=== PATIENT | male | born 1990 | race Caucasian/White ===

== ENCOUNTER 2024-09-17 17:26 | Inpatient (IN) | payer OTHER, SELFPAY ==
[2024-09-17 17:32] VITALS: BP 153/102; PULSE 110; RESP 20; TEMP 35.8; O2SAT 98; BMI 33.4
--- NOTE | 2024-09-17 17:37 | ED_ITS ---
HPI - General Adult General Chief complaint: Psychiatric Symptoms Stated complaint: SI Time Seen by Provider: 09/17/24 18:03 Source: patient Mode of arrival: ambulatory Limitations: no limitations History of Present Illness ED Provider: RUDY HPI narrative: 34 yo male with PMH of HIV on antivirals, bipolar and depression here with c/o SI and HI towards a roommate. Reports med compliance and no trauma or ingestion. He has never come here before for mental health issues. He has no medical complaints MD complaint: SI/HI Onset (ago): day(s) (few) Radiation: non-radiation Severity: mild Relieving factors: none Exacerbating factors: other Associated symptoms: denies other symptoms Treatments prior to arrival: none Related Data Home Medications ?Medication ?Instructions ?Recorded ?Confirmed dolutegravir 50 mg tablet (Tivicay) 50 mg PO DAILY 09/17/24 09/17/24 emtricitabine 200 mg-tenofovir 1 tab PO DAILY 09/17/24 09/17/24 alafenamide fumarate 25 mg tablet (Descovy) hydroxyzine HCl 25 mg tablet 25 mg PO BID 09/17/24 09/17/24 pantoprazole 20 mg tablet,delayed 20 mg PO DAILY 09/17/24 09/17/24 release venlafaxine 75 mg tablet 75 mg PO DAILY 09/17/24 09/17/24 Allergies Allergy/AdvReac Type Severity Reaction Status Date / Time codeine Allergy Hives Verified 09/17/24 17:34 Review of Systems 2 Review of Systems: Constitutional : No Fever, No Chills ENT/Mouth : No Ear Pain, No Nasal Congestion, No sore throat Eyes: No Eye Pain, No Swelling, No Redness Cardiovascular : No Chest Pain, No SOB Respiratory : No Cough, No Sputum, No Dyspnea Gastrointestinal : No Nausea, No Vomiting, No Diarrhea, No Hematochezia, No Melena Genitourinary : No Dysuria, No Urinary Frequency, No Hematuria Musculoskeletal : No Myalgias Skin : No Skin Lesions, No rash Neuro : No Weakness, No Numbness, No Paresthesias, No Dizziness, No Headache Psych : positive Anxiety, positive Depression, positive SI/HI All other systems reviewed and are negative PMFSH Past Medical History Attestation statement: The following information was validated with the patient. Source: old records reviewed Medical History Bipolar 1 disorder HIV (human immunodeficiency virus infection) Social History Social History Alcohol intake: current Smoked in Last 30 Days: Yes Use of substances other than those prescribed or required for medical reasons: Yes Substance Use Type: Methamphetamine and Prescription Drugs Substance Use Frequency: Chronic Longstanding Advance Directives: No Advance Directives Information Provided: No Do you have a plan to hurt others: No Plan Physical Exam ED Vital Signs: Vital Signs - 24 hr 09/17/24 17:32 09/17/24 18:26 Temperature 96.5 F L Pulse Rate 110 H Respiratory Rate 20 16 Blood Pressure 153/102 H Pulse Oximetry 98 Oxygen Delivery Method Room Air BMI result Body Mass Index 33.4 Appearance: Alert. Oriented X3. No acute distress. Eyes: Pupils equal, round and reactive to light. ENT: Pharynx normal. Neck: Normal inspection. Neck supple. CVS: Normal heart rate and rhythm. Pulses normal. Respiratory: No respiratory distress. Breath sounds normal. Abdomen: Soft and nontender. Skin: Skin warm and dry. Normal skin color. Normal skin turgor. Extremities: No lower extremity edema. No calf ttp Neuro: Oriented X 3. No motor deficit. No sensory deficit. CN2-12 intact Course Course Course Narrative: RME: Medical Decision Making Medical Decision Making [facility] Narrative: 34 yo male with PMH of HIV on antivirals, bipolar and depression here with c/o SI/HI and he denies any medical complaints or concerns he states he takes his medications. He has a safe place to live. No drug use reported. Differential Diagnosis Differential Diagnoses: The differential diagnosis associated with the presentation includes SI/HI, depression Admission/Observation Consideration of admission/observation: Escalation of care including admission/observation considered physician observation started at 710pm pending CARE team Consult Healthcare Provider Management of the patient was discussed with: Behavioral Health Provider Lab Data MDM Lab Attestation statement: I reviewed the patient's lab results. 09/17/24 19:45 09/17/24 19:45 Labs: Lab Results 09/17/24 Range/Units 19:45 WBC 8.7 (4.8-10.8) X10*3/uL RBC 4.56 L (4.60-5.80) X10*6/uL Hgb 13.6 L (14.0-18.0) g/dl Hct 40.6 L (42.0-52.0) % MCV 89.0 (80.0-98.0) fL MCH 29.8 (27.0-33.0) pg MCHC 33.5 (31.0-36.0) g/dl RDW 13.2 (11.0-16.0) % Plt Count 247 (160-400) X10*3/uL MPV 9.7 (9.4-12.4) fL Immature Gran % (Auto) 0.2 (0.0-0.4) % Neut % (Auto) 61.1 (45-73) % Lymph % (Auto) 30.6 (20-40) % [place] % (Auto) 6.2 (2-11) % Eos % (Auto) 1.6 (0-4) % Baso % (Auto) 0.3 (0-2) % Lymph # (Auto) 2.7 (1.2-4.9) X10*3/uL [place] # (Auto) 0.5 (0.1-1.2) X10*3/uL Eos # (Auto) 0.1 (0.0-0.4) X10*3/uL Baso # (Auto) 0.0 (0.0-0.2) X10*3/uL Abs Immat Gran (auto) 0.02 (0.00-0.03) X10*3/uL Absolute Neuts (auto) 5.3 (2.0-8.3) x10*3/uL Absolute Nucleated RBC 0.000 (0.0-0.012) X10*3/uL Nucleated RBC % (auto) 0.0 (0.0-0.2) /100WBC Sodium 144 (135-145) mmol/L Potassium 3.9 (3.3-5.1) mmol/L Chloride 107 (96-108) mmol/L Carbon Dioxide 27 (22-29) mmol/L Anion Gap 14 (12-20) BUN 11 (9-16) mg/dL Creatinine 1.00 (0.5-1.4) mg/dL Estim Creat Clear Calc 119.1 Estimated GFR > 60 Random Glucose 96 (60-115) mg/dL Calcium 9.1 (8.4-10.2) mg/dL Total Bilirubin 0.6 (0.0-1.0) mg/dL AST 74 H (5-37) U/L ALT 66 H (0-40) U/L Alkaline Phosphatase 60 (39-117) U/L Total Protein 7.1 (6.5-8.0) g/dL Albumin 4.2 (3.5-5.0) g/dL Ethyl Alcohol < 10 mg/dL Discharge Plan Discharge Clinical Impression: Depression Qualifiers: Depression Type: unspecified Qualified Code(s): F32.A - Depression, unspecified Patient Disposition: Still a Patient Prescriptions: No Action venlafaxine 75 mg tablet 75 mg PO DAILY pantoprazole 20 mg tablet,delayed release (DR/EC) 20 mg PO DAILY hydroxyzine HCl 25 mg tablet 25 mg PO BID Tivicay 50 mg tablet 50 mg PO DAILY Descovy 200-25 mg tablet 1 tab PO DAILY Interventions: [place]-Suicide Risk Severity Scale Last Done: 09/17/24 18:26 Print Language: Scottish
[2024-09-17 18:26] VITALS: RESP 16
--- NOTE | 2024-09-17 18:43 | PC.NURSE ---
Patient refusing blood draw stating I only want the lab to draw my blood
[2024-09-17 19:50] LABS: MANUAL DIFF FLAG NO
[2024-09-17 19:52] LABS: Basophils Percent Auto 0.3 % (0-2); Eosinophils Absolute Auto 0.1 X10*3/uL (0.0-0.4); Eosinophils Percent Auto 1.6 % (0-4); Hematocrit 40.6 % (42.0-52.0); Hemoglobin 13.6 g/dl (14.0-18.0); Imm Gran Abs Auto 0.02 X10*3/uL (0.00-0.03); Imm Gran Pct Auto 0.2 % (0.0-0.4); Lymphocytes Absolute Auto 2.7 X10*3/uL (1.2-4.9); Lymphocytes Percent Auto 30.6 % (20-40); Mean Corpuscular HGB Conc 33.5 g/dl (31.0-36.0); Mean Corpuscular Hemoglobin 29.8 pg (27.0-33.0); Mean Platelet Volume 9.7 fL (9.4-12.4); Monocytes Absolute Auto 0.5 X10*3/uL (0.1-1.2); Monocytes Percent Auto 6.2 % (2-11); Neutrophils Absolute Auto 5.3 x10*3/uL (2.0-8.3); Neutrophils Percent Auto 61.1 % (45-73); Platelet Count 247 X10*3/uL (160-400); Red Blood Count 4.56 X10*6/uL (4.60-5.80); Red Cell Distribution Width 13.2 % (11.0-16.0); White Blood Count 8.7 X10*3/uL (4.8-10.8)
[2024-09-17 20:09] LABS: Alanine Aminotransferase 66 U/L (0-40); Albumin Level 4.2 g/dL (3.5-5.0); Alkaline Phosphatase 60 U/L (39-117); Anion Gap 14 (12-20); Aspartate Amino Transferase 74 U/L (5-37); Bilirubin Total 0.6 mg/dL (0.0-1.0); Blood Urea Nitrogen 11 mg/dL (9-16); Calcium 9.1 mg/dL (8.4-10.2); Carbon Dioxide 27 mmol/L (22-29); Chloride 107 mmol/L (96-108); Creatinine Clr Calc Pharmacy 119.1; Estimated Glomerular Filt Rate > 60; Ethanol < 10 mg/dL; Glucose Random 96 mg/dL (60-115); Potassium 3.9 mmol/L (3.3-5.1); Sodium 144 mmol/L (135-145); Total Protein 7.1 g/dL (6.5-8.0)
[2024-09-17 22:13] LABS: Appearance Urine Clear; Color Urine Dark Yellow; Glucose Urine UA 500 mg/dL (Negative); Leukocyte Esterase Urine Trace (Negative); Nitrite Urine Negative (Negative); PH 5.5 (5.0-9.0); Specific Gravity - Urine >= 1.030 (1.005-1.025); UMIC TRIGGER UACC YES; Urine Blood Negative (Negative); Urine Ketones Trace mg/dL (Negative); Urine Protein 30 (1+) mg/dL (Neg-Trace)
[2024-09-17 22:24] LABS: Amphetamine Screen Urine POSITIVE (Not Detect); Barbiturates, Urine Not Detected (Not Detect); Benzodiazepines Screen Urine Not Detected (Not Detect); Buprenorphine Scr Not Detected (Not Detect); Cannabinoid Screen Urine POSITIVE (Not Detect); Cocaine Screen Urine POSITIVE (Not Detect); Fentanyl, urine Not Detected (Not Detect); Methadone Screen, Urine Not Detected (Not Detect); Opiate Screen Urine Not Detected (Not Detect); Oxycodone Screen Urine Not Detected (Not Detect); Phencyclidine Screen Urine Not Detected (Not Detect)
[2024-09-17] MEDS: Venlafaxine HCL 25 MG TABLET 75 MG PO (22:24)
[2024-09-17] MEDS: Emtricitabine/Tenofov Alafenam TABLET 1 TAB PO (22:24)
[2024-09-17] MEDS: Dolutegravir Sodium 50 MG TABLET PO (22:24)
[2024-09-17] MEDS: hydrOXYzine HCL 25 MG TABLET PO (22:25)
[2024-09-17] MEDS: Omeprazole 20 MG CAPSULE.DR PO (22:25)
[2024-09-17 22:27] LABS: Bacteria Urine None Seen (None Seen); RBC Urine 0-2 /HPF (0-2); Squamous Epithelial Cell Urine 0-2 /HPF (0-2); WBC Urine 0-5 /HPF (0-5)
--- NOTE | 2024-09-18 | ECG_ITS ---
Test Reason : rule out prolonged qtc Blood Pressure : */* mmHG Vent. Rate : 60 BPM Atrial Rate : 60 BPM P-R Int : 110 ms QRS Dur : 84 ms QT Int : 380 ms P-R-T Axes : 9 42 29 degrees QTcB Int : 380 ms Sinus rhythm with short CO Otherwise normal ECG No previous ECGs available Referred By: Jayshree Tran Electronically Signed By: JOCELIN VASQUEZ
[2024-09-18 00:38] VITALS: BP 120/69; PULSE 80; RESP 17; TEMP 36.4; O2SAT 98
--- NOTE | 2024-09-18 06:04 | PC.NURSE ---
Patient slept through the night, no distress observed/reported, 15 minutes safety check, no behavior and safety concerns, meds and meals compliant, disposition per care team is section 12 inpatient bed search, VSS, will continue to monitor
--- NOTE | 2024-09-18 07:19 | PC.NURSE ---
Assumed care of patient at 0645, patient appears to be sleeping, respirations even and unlabored, no apparent distress noted. Continue plan of care for inpatient bedsearch
[2024-09-18] MEDS: hydrOXYzine HCL 25 MG TABLET PO (07:59)
--- NOTE | 2024-09-18 14:45 | PHA.MEDREC ---
Pharmacy Consult ? Medication Reconciliation Pharmacy has reviewed the medication reconciliation completed by nursing.
[2024-09-18 15:45] VITALS: BP 132/84; PULSE 92; RESP 16; TEMP 36.6; O2SAT 95; BMI 35.5
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
[2024-09-18] MEDS: Emtricitabine/Tenofov Alafenam TABLET 1 TAB PO (21:28)
[2024-09-18] MEDS: Dolutegravir Sodium 50 MG TABLET PO (21:28)
[2024-09-18] MEDS: Venlafaxine HCL 25 MG TABLET 75 MG PO (21:29)
[2024-09-18] MEDS: Omeprazole 20 MG CAPSULE.DR PO (21:29)
[2024-09-19 08:00] VITALS: RESP 14
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
[2024-09-19 20:00] VITALS: BP 110/58; PULSE 63; TEMP 36.6; O2SAT 96
[2024-09-19] MEDS: Venlafaxine HCL 25 MG TABLET 75 MG PO (21:00)
[2024-09-19] MEDS: Omeprazole 20 MG CAPSULE.DR PO (21:00)
[2024-09-19] MEDS: Dolutegravir Sodium 50 MG TABLET PO (21:00)
[2024-09-19] MEDS: Emtricitabine/Tenofov Alafenam TABLET 1 TAB PO (21:00)
[2024-09-20 07:00] VITALS: BMI 35.5
[2024-09-20 08:00] VITALS: BP 123/77; PULSE 62; RESP 96; TEMP 36; O2SAT 96
--- NOTE | 2024-09-20 14:33 | HO.PSYCHPN ---
Subjective Subjective Date of Service: 09/20/24 Reason For Visit: depression, polysubstance use disorder Subjective Notes: Conditional Voluntary Healthcare Proxy: No Guardianship: No Medical Problems Affecting Mental Status: No Interim History: Pt declined to meet again today, staying in bed, sleeping throughout the day. Team report he is eating, taking fluids and sleeping. Medication Compliance: No Side effects from medications: No Attending Groups: No Review of Systems Acute medical concerns: No Medical Review of Systems: unchanged Review of Systems Review of Systems Yes Unobtainable due to mental status Mental Status Exam Mental Status Exam Patient Appearance: Fatigued Patient Orientation: Person, Place and Situation Level of Consciousness: Drowsy Patient Behavior: Guarded, Suspicious, Asleep, Sedated, Resistive to Care, Avoidant, Fatigued, Uncooperative and Poor Eye Contact Mood Description: Constricted Affect Description: Constricted Patient Cognition Impaired: No Ability to Follow Directions: Fair Speech Pattern: Spontaneous Speech Thought Process: Distracted Thought Content: positive for Poverty of Content, positive for Suicidal Ideation and positive for Homicidal Ideation Depressive Symptoms: Thoughts of /Suicide Judgement: Fair Diagnostics Vital Signs (24Hr): Vital Signs - 24 hr 09/19/24 20:00 09/20/24 08:00 Temperature 97.8 F 96.8 F Pulse Rate 63 62 Respiratory Rate 96 H Blood Pressure 110/58 L 123/77 Pulse Oximetry 96 96 Oxygen Delivery Method Room Air BMI result Body Mass Index 35.5 Labs 09/17/24 19:45 09/17/24 19:45 Medications Medications Current Medications Acetaminophen (Acetaminophen 325 Mg Tablet) 650 mg PO Q6H PRN PRN Reason: Headache/Pain Mild Scale (1-3) Al Hydroxide/Mg Hydroxide (Magnesium Hydrox/Alum Hydrox 30 Ml Oral.Susp) 30 ml PO Q6H PRN PRN Reason: Heartburn/Nausea Dolutegravir Sodium (Dolutegravir Sodium 50 Mg Tablet) 50 mg PO BEDTIME [facility] Last Admin: 09/19/24 21:00 Dose: 50 mg Emtricitabine/Tenofovir Alafenamide (Emtricitabine/Tenofov Alafenam Tablet) 1 tab PO BEDTIME [facility] Last Admin: 09/19/24 21:00 Dose: 1 tab Hydroxyzine HCl (Hydroxyzine Hcl 25 Mg Tablet) 25 mg PO BID [facility] Last Admin: 09/20/24 11:42 Dose: Not Given Magnesium Hydroxide (Milk Of Magnesia 30 Ml Oral.Susp) 30 ml PO DAILY PRN PRN Reason: Constipation Nicotine (Nicotine 21 Mg Patch.Td24) 21 mg TRANSDERMA DAILY PRN PRN Reason: nicotine cravings Nicotine Polacrilex (Nicotine Polacrilex 2 Mg Gum) 4 mg BUCCAL Q2H PRN PRN Reason: Nicotine Cravings Omeprazole (Omeprazole 20 Mg Capsule.Dr) 20 mg PO BEDTIME [facility] Last Admin: 09/19/24 21:00 Dose: 20 mg Trazodone HCl (Trazodone Hcl 50 Mg Tablet) 50 mg PO BEDTIME MRX1 PRN PRN Reason: Insomnia Venlafaxine HCl (Venlafaxine Hcl 25 Mg Tablet) 75 mg PO BEDTIME [facility] Last Admin: 09/19/24 21:00 Dose: 75 mg Allergies Allergies Allergy/AdvReac Type Severity Reaction Status Date / Time codeine Allergy Hives Verified 09/17/24 17:34 Assessment & Plan Assessment & Plan (1) Mood disorder: Status: Acute Code(s): F39 - Unspecified mood [affective] disorder (2) Polysubstance use disorder: Status: Acute Code(s): F19.90 - Other psychoactive substance use, unspecified, uncomplicated Plan Mood Disorder, Polysubstance Use Disorder. Pt declined to interview x 3 today, prefers to remain in bed. Plan: Admit, CV, 15 minute checks Collateral Contacts Diagnostics as needed Med adjustments when pt agrees to participate Discharge planning. 09/20/24-Continue to offer treatment. Reason for continued inpatient stay Substantial Risk for: rapid decompensation Time Spent With Patient Time: Total time managing care of this patient today ____ minutes.
[2024-09-20 20:00] VITALS: BP 111/80; PULSE 68; TEMP 36.4; O2SAT 98
[2024-09-20] MEDS: Venlafaxine HCL 25 MG TABLET 75 MG PO (22:58)
[2024-09-20] MEDS: Dolutegravir Sodium 50 MG TABLET PO (22:59)
[2024-09-20] MEDS: Emtricitabine/Tenofov Alafenam TABLET 1 TAB PO (23:00)
[2024-09-20] MEDS: Omeprazole 20 MG CAPSULE.DR PO (23:00)
--- NOTE | 2024-09-21 09:54 | HO.PSYCHPN ---
Subjective Subjective Date of Service: 09/21/24 Reason For Visit: depression, polysubstance use disorder Subjective Notes: Conditional Voluntary and 3 Day Healthcare Proxy: No Guardianship: No Medical Problems Affecting Mental Status: No Interim History: Awake, alert, engaged. TDN signed for 09/26/24. Full review of sx, medications and changes needed. Pt reports PCP had been prescribing, gave pt a year worth of refills, went on maternity leave and he has not been to find a new provider to make adjustments. Review of titration of Vraylar, Venlafaxine, addition of Mirtazapine for sleep, anxiety. Review of medical concerns, will check CD4 as he reports this is overdue. Pt visable in milieu, interactive, without psychosis or lability. Medication Compliance: Yes Side effects from medications: No Attending Groups: No Review of Systems Acute medical concerns: No Medical Review of Systems: unchanged Review of Systems Review of Systems Yes all other systems are reviewed and are negative Mental Status Exam Mental Status Exam Patient Appearance: Appropriate Patient Orientation: Person, Place, Time and Situation Level of Consciousness: Alert Patient Behavior: Talkative, Fatigued and Good Eye Contact Mood Description: Constricted and Anxious Affect Description: Constricted and Anxious Patient Cognition Impaired: No Ability to Follow Directions: Good Speech Pattern: Spontaneous Speech and Soft-Spoken Memory Description: Intact Hallucinations: None Delusions: Not Present Thought Process: Distracted Thought Content: positive for Intact, positive for Goal Oriented, positive for Suicidal Ideation (denies) and positive for Homicidal Ideation (denies) Depressive Symptoms: Thoughts of /Suicide (denies) Judgement: Fair Diagnostics Vital Signs (24Hr): Vital Signs - 24 hr 09/20/24 20:00 Temperature 97.5 F Pulse Rate 68 Blood Pressure 111/80 Pulse Oximetry 98 Oxygen Delivery Method Room Air BMI result Body Mass Index 35.5 Labs 09/17/24 19:45 09/17/24 19:45 Medications Medications Current Medications Acetaminophen (Acetaminophen 325 Mg Tablet) 650 mg PO Q6H PRN PRN Reason: Headache/Pain Mild Scale (1-3) Al Hydroxide/Mg Hydroxide (Magnesium Hydrox/Alum Hydrox 30 Ml Oral.Susp) 30 ml PO Q6H PRN PRN Reason: Heartburn/Nausea Dolutegravir Sodium (Dolutegravir Sodium 50 Mg Tablet) 50 mg PO BEDTIME [facility] Last Admin: 09/20/24 22:59 Dose: 50 mg Emtricitabine/Tenofovir Alafenamide (Emtricitabine/Tenofov Alafenam Tablet) 1 tab PO BEDTIME [facility] Last Admin: 09/20/24 23:00 Dose: 1 tab Hydroxyzine HCl (Hydroxyzine Hcl 25 Mg Tablet) 25 mg PO BID [facility] Last Admin: 09/20/24 23:03 Dose: Not Given Magnesium Hydroxide (Milk Of Magnesia 30 Ml Oral.Susp) 30 ml PO DAILY PRN PRN Reason: Constipation Nicotine (Nicotine 21 Mg Patch.Td24) 21 mg TRANSDERMA DAILY PRN PRN Reason: nicotine cravings Nicotine Polacrilex (Nicotine Polacrilex 2 Mg Gum) 4 mg BUCCAL Q2H PRN PRN Reason: Nicotine Cravings Omeprazole (Omeprazole 20 Mg Capsule.Dr) 20 mg PO BEDTIME [facility] Last Admin: 09/20/24 23:00 Dose: 20 mg Trazodone HCl (Trazodone Hcl 50 Mg Tablet) 50 mg PO BEDTIME MRX1 PRN PRN Reason: Insomnia Venlafaxine HCl (Venlafaxine Hcl 25 Mg Tablet) 75 mg PO BEDTIME [facility] Last Admin: 09/20/24 22:58 Dose: 75 mg Allergies Allergies Allergy/AdvReac Type Severity Reaction Status Date / Time codeine Allergy Hives Verified 09/17/24 17:34 Assessment & Plan Assessment & Plan (1) Mood disorder: Status: Acute Code(s): F39 - Unspecified mood [affective] disorder (2) Polysubstance use disorder: Status: Acute Code(s): F19.90 - Other psychoactive substance use, unspecified, uncomplicated Plan Mood Disorder, Polysubstance Use Disorder. Pt declined to interview x 3 today, prefers to remain in bed. Plan: Admit, CV, 15 minute checks Collateral Contacts Diagnostics as needed Med adjustments when pt agrees to participate Discharge planning. 09/21/24 Mirtazapine 15 mg HS Increase Venlafaxine to 150 mg daily Increase Vraylar to 6 mg daily CD4 Three day notice to 09/26/24. Reason for continued inpatient stay Substantial Risk for: rapid decompensation and med/psych decompensation Time Spent With Patient Time: Total time managing care of this patient today ____ minutes.
--- NOTE | 2024-09-21 16:09 | PC.NURSE ---
3 day notice signed.
[2024-09-21 20:00] VITALS: BP 131/78; PULSE 81; RESP 18; TEMP 36.4; O2SAT 99
[2024-09-21] MEDS: Dolutegravir Sodium 50 MG TABLET PO (22:45)
[2024-09-21] MEDS: Mirtazapine 15 MG TABLET PO (22:45)
[2024-09-21] MEDS: Omeprazole 20 MG CAPSULE.DR PO (22:45)
[2024-09-21] MEDS: Emtricitabine/Tenofov Alafenam TABLET 1 TAB PO (22:46)
[2024-09-22 09:52] VITALS: RESP 16
--- NOTE | 2024-09-22 09:52 | PC.NURSE ---
Addendum entered by Briana Millan RN 09/22/24 10:09: 3 attempts were made between 8:30 and 10:00. Original Note: Christoph refused to wake up to take morning medications or have his vital signs taken, would not acknowledge calling his name or gently shaking him.
--- NOTE | 2024-09-22 18:49 | P.PNPSI_ITS ---
Subjective Subjective Date of Service: 09/22/24 Reason For Visit: depression, polysubstance use disorder Interim History: Met with patient; discussed with team Patient difficult with which to engage as he does not seem to want to talk much. Patient however was willing to say that he is getting better and that he is getting there... He says his mood is getting so-so. He denies any SI or HI or AVH. Mental Status Exam Mental Status Exam Patient Appearance: Appropriate Patient Orientation: Person, Place, Time and Situation Level of Consciousness: Awake and Alert Patient Behavior: Cooperative (Marginally so) and Poor Eye Contact Behavior Comments: Keeps to himself, does not talk much Mood Description: Calm ( so so ) Affect Description: Constricted Patient Cognition Impaired: No Ability to Follow Directions: Fair Speech Pattern: Spontaneous Speech and Soft-Spoken Memory Description: Intact Hallucinations: None Delusions: Not Present Thought Process: Goal Oriented Thought Content: positive for Intact, positive for Goal Oriented, positive for Suicidal Ideation (denies) and positive for Homicidal Ideation (denies) Judgement: Fair Diagnostics Vital Signs (24Hr): Vital Signs - 24 hr 09/21/24 20:00 09/22/24 09:52 Temperature 97.5 F Pulse Rate 81 Respiratory Rate 18 16 Blood Pressure 131/78 Pulse Oximetry 99 Oxygen Delivery Method Room Air BMI result Body Mass Index 35.5 Labs 09/17/24 19:45 09/17/24 19:45 Medications Medications Current Medications Acetaminophen (Acetaminophen 325 Mg Tablet) 650 mg PO Q6H PRN PRN Reason: Headache/Pain Mild Scale (1-3) Al Hydroxide/Mg Hydroxide (Magnesium Hydrox/Alum Hydrox 30 Ml Oral.Susp) 30 ml PO Q6H PRN PRN Reason: Heartburn/Nausea Cariprazine (Cariprazine Hcl 3 Mg Capsule) 6 mg PO BEDTIME HERMINIA Dolutegravir Sodium (Dolutegravir Sodium 50 Mg Tablet) 50 mg PO BEDTIME HERMINIA Last Admin: 09/21/24 22:45 Dose: 50 mg Emtricitabine/Tenofovir Alafenamide (Emtricitabine/Tenofov Alafenam Tablet) 1 tab PO BEDTIME HERMINIA Last Admin: 09/21/24 22:46 Dose: 1 tab Magnesium Hydroxide (Milk Of Magnesia 30 Ml Oral.Susp) 30 ml PO DAILY PRN PRN Reason: Constipation Mirtazapine (Mirtazapine 15 Mg Tablet) 15 mg PO BEDTIME HERMINIA Last Admin: 09/21/24 22:45 Dose: 15 mg Nicotine (Nicotine 21 Mg Patch.Td24) 21 mg TRANSDERMA DAILY PRN PRN Reason: nicotine cravings Nicotine Polacrilex (Nicotine Polacrilex 2 Mg Gum) 4 mg BUCCAL Q2H PRN PRN Reason: Nicotine Cravings Omeprazole (Omeprazole 20 Mg Capsule.Dr) 20 mg PO BEDTIME HERMINIA Last Admin: 09/21/24 22:45 Dose: 20 mg Trazodone HCl (Trazodone Hcl 50 Mg Tablet) 50 mg PO BEDTIME MRX1 PRN PRN Reason: Insomnia Venlafaxine HCl (Venlafaxine Hcl Er 150 Mg Cap.Er.24h) 150 mg PO BEDTIME HERMINIA Allergies Allergies Allergy/AdvReac Type Severity Reaction Status Date / Time codeine Allergy Hives Verified 09/17/24 17:34 Assessment & Plan Assessment & Plan (1) Mood disorder: Status: Acute Code(s): F39 - Unspecified mood [affective] disorder (2) Polysubstance use disorder: Status: Acute Code(s): F19.90 - Other psychoactive substance use, unspecified, uncomplicated Plan Mood Disorder, Polysubstance Use Disorder. Pt declined to interview x 3 today, prefers to remain in bed. Plan: Admit, CV, 15 minute checks Collateral Contacts Diagnostics as needed Med adjustments when pt agrees to participate Discharge planning. 09/21/24 Mirtazapine 15 mg HS Increase Venlafaxine to 150 mg daily Increase Vraylar to 6 mg daily CD4 Three day notice to 09/26/24. 09/22 Patient difficult with which to engage as he does not seem to want to talk much. Patient however was willing to say that he is getting better and that he is getting there... He says his mood is getting so-so. He denies any SI or HI or AVH. Patient wants medication to be changed to bedtime to which senior mortgage underwriter agrees Patient educated on: diagnosis and medication risk/benefits Informed Consent: understands Reason for continued inpatient stay Substantial Risk for: med/psych decompensation Time Spent With Patient Time: Total time managing care of this patient today ____ minutes.
[2024-09-22] MEDS: Dolutegravir Sodium 50 MG TABLET PO (22:27)
[2024-09-22] MEDS: Cariprazine HCl 3 MG CAPSULE 6 MG PO (22:27)
[2024-09-22] MEDS: Emtricitabine/Tenofov Alafenam TABLET 1 TAB PO (22:28)
[2024-09-22] MEDS: Omeprazole 20 MG CAPSULE.DR PO (22:28)
[2024-09-22] MEDS: Mirtazapine 15 MG TABLET PO (22:28)
[2024-09-22] MEDS: Venlafaxine HCl ER 150 MG CAP.ER.24H PO (22:28)
[2024-09-23 07:38] VITALS: RESP 18
[2024-09-23] MEDS: Magnesium Hydrox/Alum Hydrox 30 ML ORAL.SUSP PO (12:07)
--- NOTE | 2024-09-23 16:05 | P.PNPSI_ITS ---
Subjective Subjective Date of Service: 09/23/24 Reason For Visit: depression, polysubstance use disorder Interim History: Met with patient; discussed with team Refuses to talk with assembly instructions writer other than to not is okay Mental Status Exam Mental Status Exam Patient Appearance: Appropriate Patient Orientation: Person, Place, Time and Situation Level of Consciousness: Awake and Alert Patient Behavior: Cooperative (Marginally so) and Poor Eye Contact Behavior Comments: Keeps to himself, does not talk much Mood Description: Calm Affect Description: Constricted Patient Cognition Impaired: No Ability to Follow Directions: Fair Speech Pattern: Spontaneous Speech and Soft-Spoken Memory Description: Intact Hallucinations: None Delusions: Not Present Thought Process: Goal Oriented Thought Content: positive for Intact, positive for Goal Oriented, positive for Suicidal Ideation (denies) and positive for Homicidal Ideation (denies) Judgement: Fair Diagnostics Vital Signs (24Hr): Vital Signs - 24 hr 09/23/24 07:38 Respiratory Rate 18 Oxygen Delivery Method Room Air BMI result Body Mass Index 35.5 Labs 09/17/24 19:45 09/17/24 19:45 Medications Medications Current Medications Acetaminophen (Acetaminophen 325 Mg Tablet) 650 mg PO Q6H PRN PRN Reason: Headache/Pain Mild Scale (1-3) Al Hydroxide/Mg Hydroxide (Magnesium Hydrox/Alum Hydrox 30 Ml Oral.Susp) 30 ml PO Q6H PRN PRN Reason: Heartburn/Nausea Last Admin: 09/23/24 12:07 Dose: 30 ml Cariprazine (Cariprazine Hcl 3 Mg Capsule) 6 mg PO BEDTIME HERMINIA Last Admin: 09/22/24 22:27 Dose: 6 mg Dolutegravir Sodium (Dolutegravir Sodium 50 Mg Tablet) 50 mg PO BEDTIME HERMINIA Last Admin: 09/22/24 22:27 Dose: 50 mg Emtricitabine/Tenofovir Alafenamide (Emtricitabine/Tenofov Alafenam Tablet) 1 tab PO BEDTIME HERMINIA Last Admin: 09/22/24 22:28 Dose: 1 tab Magnesium Hydroxide (Milk Of Magnesia 30 Ml Oral.Susp) 30 ml PO DAILY PRN PRN Reason: Constipation Mirtazapine (Mirtazapine 15 Mg Tablet) 15 mg PO BEDTIME HERMINIA Last Admin: 09/22/24 22:28 Dose: 15 mg Nicotine (Nicotine 21 Mg Patch.Td24) 21 mg TRANSDERMA DAILY PRN PRN Reason: nicotine cravings Nicotine Polacrilex (Nicotine Polacrilex 2 Mg Gum) 4 mg BUCCAL Q2H PRN PRN Reason: Nicotine Cravings Omeprazole (Omeprazole 20 Mg Capsule.Dr) 20 mg PO BEDTIME [facility] Last Admin: 09/22/24 22:28 Dose: 20 mg Trazodone HCl (Trazodone Hcl 50 Mg Tablet) 50 mg PO BEDTIME MRX1 PRN PRN Reason: Insomnia Venlafaxine HCl (Venlafaxine Hcl Er 150 Mg Cap.Er.24h) 150 mg PO BEDTIME [facility] Last Admin: 09/22/24 22:28 Dose: 150 mg Allergies Allergies Allergy/AdvReac Type Severity Reaction Status Date / Time codeine Allergy Hives Verified 09/17/24 17:34 Assessment & Plan Assessment & Plan (1) Mood disorder: Status: Acute Code(s): F39 - Unspecified mood [affective] disorder (2) Polysubstance use disorder: Status: Acute Code(s): F19.90 - Other psychoactive substance use, unspecified, uncomplicated Plan Mood Disorder, Polysubstance Use Disorder. Pt declined to interview x 3 today, prefers to remain in bed. Plan: Admit, CV, 15 minute checks Collateral Contacts Diagnostics as needed Med adjustments when pt agrees to participate Discharge planning. 09/21/24 Mirtazapine 15 mg HS Increase Venlafaxine to 150 mg daily Increase Vraylar to 6 mg daily CD4 Three day notice to 09/26/24. 09/22 Patient difficult with which to engage as he does not seem to want to talk much. Patient however was willing to say that he is getting better and that he is getting there... He says his mood is getting so-so. He denies any SI or HI or AVH. Patient wants medication to be changed to bedtime to which assembly instructions writer agrees 09/23 continue treatment plan; patient not interested in engaging Reason for continued inpatient stay Substantial Risk for: med/psych decompensation Time Spent With Patient Time: Total time managing care of this patient today ____ minutes.
[2024-09-23 20:00] VITALS: RESP 14
[2024-09-23] MEDS: Dolutegravir Sodium 50 MG TABLET PO (22:37)
[2024-09-23] MEDS: Venlafaxine HCl ER 150 MG CAP.ER.24H PO (22:37)
[2024-09-23] MEDS: Cariprazine HCl 3 MG CAPSULE 6 MG PO (22:38)
[2024-09-23] MEDS: Mirtazapine 15 MG TABLET PO (22:38)
[2024-09-23] MEDS: Emtricitabine/Tenofov Alafenam TABLET 1 TAB PO (22:38)
[2024-09-23] MEDS: Omeprazole 20 MG CAPSULE.DR PO (22:38)
--- NOTE | 2024-09-24 16:12 | HO.PSYCHPN ---
Subjective Subjective Date of Service: 09/24/24 Reason For Visit: depression, polysubstance use disorder Subjective Notes: Conditional Voluntary and 3 Day Healthcare Proxy: No Guardianship: No Medical Problems Affecting Mental Status: No Interim History: Pt reports tolerating medication increases. He requested to change doses to HS over the weekend. Prepared for discharge 09/25. Denies SI,HI, AH, VH. No sx of acute psychosis,guillermo Medication Compliance: Yes Side effects from medications: No Attending Groups: Intermittent Review of Systems Acute medical concerns: No Medical Review of Systems: unchanged Review of Systems Review of Systems Denies Mental Status Exam Mental Status Exam Patient Appearance: Appropriate Patient Orientation: Person, Place, Time and Situation Level of Consciousness: Alert Patient Behavior: Appropriate, Talkative and Good Eye Contact Mood Description: Constricted Affect Description: Constricted Patient Cognition Impaired: No Ability to Follow Directions: Good Speech Pattern: Spontaneous Speech Memory Description: Intact Hallucinations: None Delusions: Not Present Thought Process: Intact Thought Content: positive for Intact Depressive Symptoms: Thoughts of /Suicide (denies) Judgement: Good Diagnostics Vital Signs (24Hr): Vital Signs - 24 hr 09/23/24 20:00 Respiratory Rate 14 BMI result Body Mass Index 35.5 Labs 09/17/24 19:45 09/17/24 19:45 Medications Medications Current Medications Acetaminophen (Acetaminophen 325 Mg Tablet) 650 mg PO Q6H PRN PRN Reason: Headache/Pain Mild Scale (1-3) Al Hydroxide/Mg Hydroxide (Magnesium Hydrox/Alum Hydrox 30 Ml Oral.Susp) 30 ml PO Q6H PRN PRN Reason: Heartburn/Nausea Last Admin: 09/23/24 12:07 Dose: 30 ml Cariprazine (Cariprazine Hcl 3 Mg Capsule) 6 mg PO BEDTIME HERMINIA Last Admin: 09/23/24 22:38 Dose: 6 mg Dolutegravir Sodium (Dolutegravir Sodium 50 Mg Tablet) 50 mg PO BEDTIME HERMINIA Last Admin: 09/23/24 22:37 Dose: 50 mg Emtricitabine/Tenofovir Alafenamide (Emtricitabine/Tenofov Alafenam Tablet) 1 tab PO BEDTIME HERMINIA Last Admin: 09/23/24 22:38 Dose: 1 tab Magnesium Hydroxide (Milk Of Magnesia 30 Ml Oral.Susp) 30 ml PO DAILY PRN PRN Reason: Constipation Mirtazapine (Mirtazapine 15 Mg Tablet) 15 mg PO BEDTIME HERMINIA Last Admin: 09/23/24 22:38 Dose: 15 mg Nicotine (Nicotine 21 Mg Patch.Td24) 21 mg TRANSDERMA DAILY PRN PRN Reason: nicotine cravings Nicotine Polacrilex (Nicotine Polacrilex 2 Mg Gum) 4 mg BUCCAL Q2H PRN PRN Reason: Nicotine Cravings Omeprazole (Omeprazole 20 Mg Capsule.Dr) 20 mg PO BEDTIME HERMINIA Last Admin: 09/23/24 22:38 Dose: 20 mg Trazodone HCl (Trazodone Hcl 50 Mg Tablet) 50 mg PO BEDTIME MRX1 PRN PRN Reason: Insomnia Venlafaxine HCl (Venlafaxine Hcl Er 150 Mg Cap.Er.24h) 150 mg PO BEDTIME HERMINIA Last Admin: 09/23/24 22:37 Dose: 150 mg Allergies Allergies Allergy/AdvReac Type Severity Reaction Status Date / Time codeine Allergy Hives Verified 09/17/24 17:34 Assessment & Plan Assessment & Plan (1) Mood disorder: Status: Acute Code(s): F39 - Unspecified mood [affective] disorder (2) Polysubstance use disorder: Status: Acute Code(s): F19.90 - Other psychoactive substance use, unspecified, uncomplicated Plan Mood Disorder, Polysubstance Use Disorder. Pt declined to interview x 3 today, prefers to remain in bed. Plan: Admit, CV, 15 minute checks Collateral Contacts Diagnostics as needed Med adjustments when pt agrees to participate Discharge planning. 09/21/24 Mirtazapine 15 mg HS Increase Venlafaxine to 150 mg daily Increase Vraylar to 6 mg daily CD4 Three day notice to 09/26/24. 09/22 Patient difficult with which to engage as he does not seem to want to talk much. Patient however was willing to say that he is getting better and that he is getting there... He says his mood is getting so-so. He denies any SI or HI or AVH. Patient wants medication to be changed to bedtime to which chief writer agrees 09/23 continue treatment plan; patient not interested in engaging 09/24 Discharge 09/25/24 Reason for continued inpatient stay Substantial Risk for: stable for discharge Time Spent With Patient Time: Total time managing care of this patient today ____ minutes.
[2024-09-24] MEDS: Magnesium Hydrox/Alum Hydrox 30 ML ORAL.SUSP PO (16:30)
[2024-09-24] MEDS: Venlafaxine HCl ER 150 MG CAP.ER.24H PO (22:30)
[2024-09-24] MEDS: Emtricitabine/Tenofov Alafenam TABLET 1 TAB PO (22:30)
[2024-09-24] MEDS: Dolutegravir Sodium 50 MG TABLET PO (22:30)
[2024-09-24] MEDS: Cariprazine HCl 3 MG CAPSULE 6 MG PO (22:30)
[2024-09-24] MEDS: Omeprazole 20 MG CAPSULE.DR PO (22:30)
[2024-09-24] MEDS: Mirtazapine 15 MG TABLET PO (22:30)
[2024-09-25 08:00] VITALS: RESP 16
--- NOTE | 2024-09-25 17:30 | PM.PSYDC ---
DS: Providers Provider Date of admission: 09/18/24 13:50 Primary care physician: Unknown Physician DS: Diagnosis Discharge Diagnosis (1) Mood disorder: Status: Acute (2) Polysubstance use disorder: Status: Acute DS: Medications Discharge Medications Home Medications: Previous Rx's ?Medication ?Instructions ?Recorded cariprazine 6 mg capsule (Vraylar) 6 mg PO DAILY #30 caps 09/25/24 dolutegravir 50 mg tablet (Tivicay) 50 mg PO BEDTIME #30 tabs 09/25/24 emtricitabine 200 mg-tenofovir 1 tab PO BEDTIME #30 tabs 09/25/24 alafenamide fumarate 25 mg tablet (Descovy) mirtazapine 15 mg tablet 15 mg PO BEDTIME #30 tabs 09/25/24 naloxone 4 mg/actuation nasal 4 mg intranasal Q2M PRN opioid 09/25/24 spray (Narcan) overdose #2 ea pantoprazole 20 mg tablet,delayed 20 mg PO BEDTIME #30 tabs 09/25/24 release venlafaxine 150 mg 150 mg PO BEDTIME #30 caps 09/25/24 capsule,extended release 24 hr Data Data Completed and Pending Completed studies during hospitalization [Text1]: 09/21/24 14:31 Lymphocyte Subset Cmmnt Pending Total Lymphocytes Pending % CD3 Cells Pending Absolute CD3 Count Pending % CD4 Cells Pending Absolute CD4 Count Pending CD4/CD8 Ratio Pending % CD8 Cells Pending Absolute CD8 Count Pending DS: Summary Time Spent with Patient Time attestation: Total time managing care of this patient today ____ minutes. Discharge Plan Discharge Anticipated Discharge Date/Time: 09/25/24 12:00 Patient Disposition: Xfer Other Discharge Diagnosis: Mood Disorder Polysubstance Use Disorder Referrals: Physician,Unknown J [Primary Care Provider] - (Pt declined to sign release for PCP. Pt reported he will schedule his own follow up appointment following discharge. ) Discharge Medications: New venlafaxine 150 mg Capsule,Extended Release 24hr 150 mg PO BEDTIME Qty: 30 1RF mirtazapine 15 mg Tablet 15 mg PO BEDTIME Qty: 30 1RF Vraylar 6 mg capsule 6 mg PO DAILY Qty: 30 1RF naloxone [Narcan] 4 mg/actuation spray,non-aerosol 4 mg intranasal Q2M PRN (Reason: opioid overdose) Qty: 2 0RF Rx Instructions: spray 1 dose into ONE nostril; alternate nostrils w each dose until help arrives Continued pantoprazole 20 mg tablet,delayed release (DR/EC) 20 mg PO BEDTIME Qty: 30 1RF Tivicay 50 mg tablet 50 mg PO BEDTIME Qty: 30 1RF Descovy 200-25 mg tablet 1 tab PO BEDTIME Qty: 30 1RF Discontinued venlafaxine 75 mg tablet 75 mg PO BEDTIME hydroxyzine HCl 25 mg tablet 25 mg PO BID Discharge Orders: Discharge Order (Routine); Ordered 09/25/24 Ordered By: Leela Iglesias Diet: Advance to usual diet Activity on Discharge: As tolerated Stand Alone Forms: Patient Portal Discharge page, Community Support Print Language: Slovak Care Plan Goals: Mood and Behavioral Stabilization Abstinence from Substances Health Concerns: Mood and Behavioral Stabilization Abstinence from Substances Plan of Treatment: Take medications as directed Attend scheduled appointments Assessment: Denies SI,HI,AH,VH No sx of acute guillermo or psychosis Agrees with plan of care. Discharge Date/Time: 09/25/24 11:40
[2024-09-26 14:53] LABS: Absolute CD3 Count 2370 cells/uL (840-3060); Absolute CD4 Count 1035 cells/uL (490-1740); Absolute CD8 Count 1354 cells/uL (180-1170); Absolute Lymphocytes 3154 cells/uL (850-3900); CD4 CD8 Ratio 0.76 (0.86-5.00); Percent CD3 Cells 75 % (57-85); Percent CD4 Cells 33 % (30-61); Percent CD8 Cells 43 % (12-42)
== END 2024-09-25 11:40 | disposition other institution (70) | DRG 753 ==
LOC: HO.ED 19:13 → HO.PM5 09-18 14:41
PROVIDERS: Physician Assistant; Admitting Provider Clinical Nurse Specialist Psychiatric/Mental Health, Adult; Emergency Provider Emergency Medicine; Visit Provider Clinical Nurse Specialist Psychiatric/Mental Health, Adult
DX: F39 Unspecified mood [affective] disorder (principal); R45.851 Suicidal ideations; R45.850 Homicidal ideations; F17.210 Nicotine dependence, cigarettes, uncomplicated; F19.90 Other psychoactive substance use, unspecified, uncomplicated; Z21 Asymptomatic human immunodeficiency virus [HIV] infection status; Z71.6 Tobacco abuse counseling; Z79.899 Other long term (current) drug therapy
CPT/HCPCS: 36415; 80053; 80307; 81001; 85025; 86359; 86360; 93005; 99285

== ENCOUNTER 2024-09-18 13:50 | Outpatient (BNV) | payer OTHER, SELFPAY | END 2024-09-18 14:07 | PROVIDERS: Admitting Provider Clinical Nurse Specialist Psychiatric/Mental Health, Adult; Emergency Provider Emergency Medicine; Visit Provider Internal Medicine | DX: I45.81 Long QT syndrome (principal) | CPT/HCPCS: 93010 ==

== ENCOUNTER → 2024-09-18 13:50 | Outpatient (BNV) | payer OTHER, SELFPAY | PROVIDERS: Admitting Provider Clinical Nurse Specialist Psychiatric/Mental Health, Adult; Emergency Provider Emergency Medicine; Visit Provider Clinical Nurse Specialist Psychiatric/Mental Health, Adult | DX: F39 Unspecified mood [affective] disorder (principal); F19.90 Other psychoactive substance use, unspecified, uncomplicated | CPT/HCPCS: 90792 ==

== ENCOUNTER 2024-11-18 15:27 | Inpatient (IN) | payer OTHER, SELFPAY ==
--- NOTE | ~2024-11-18 | XR_ITS ---
CLINICAL HISTORY: PAIN 4 views left knee Comparison: None Findings: No fractures or dislocations. There is a small joint effusion. No significant arthritic change. No radiopaque foreign body. Impression: Joint distances are normal. No acute skeletal abnormality This document has been electronically signed by: Cedrick Daniels MD on 11/18/2024 17:10:53
--- NOTE | ~2024-11-18 | US_ITS ---
CLINICAL HISTORY: pain, swelling Venous duplex Doppler ultrasound of the left leg with duplex Doppler ultrasound and waveform analysis: Comparison: None Findings: The deep veins of the left leg were evaluated with compression, augmentation and phasicity which are normal. Blood flow in the deep veins was also documented with compression, augmentation and phasicity. A 3.2 x 12 mm water density fluid collection with debris and posterior acoustic enhancement is present in the region of interest anterior to the patella. Impression: 1. Negative for deep venous thrombosis. 2. Anterior knee water density fluid collection with debris may represent displaced joint effusion or adventitial bursitis This document has been electronically signed by: Cedrick Daniels MD on 11/18/2024 19:50:40
[2024-11-18 15:48] VITALS: BP 116/82; PULSE 112; RESP 20; TEMP 36.7; O2SAT 97; BMI 33.6
--- NOTE | 2024-11-18 17:54 | ED_ITS ---
HPI - General Adult General Chief complaint: Psychiatric Symptoms Stated complaint: Left knee swollen / pt asking for it to be drained Time Seen by Provider: 11/18/24 17:31 Source: patient Limitations: no limitations History of Present Illness ED Provider: Hattie Baker PA-C HPI narrative: 34-year-old male with a history of polysubstance abuse and mood disorder presents with left knee pain and swelling x5 days. Patient was seen at urgent care he was sent here for further assessment. Patient denies trauma, overuse injury, or sprain. Denies redness, warmth, inability to ambulate or flex and extend the knee, no fevers. Related Data Previous Rx's ?Medication ?Instructions ?Recorded cariprazine 6 mg capsule (Vraylar) 6 mg PO DAILY #30 caps 09/25/24 dolutegravir 50 mg tablet (Tivicay) 50 mg PO BEDTIME #30 tabs 09/25/24 emtricitabine 200 mg-tenofovir 1 tab PO BEDTIME #30 tabs 09/25/24 alafenamide fumarate 25 mg tablet (Descovy) mirtazapine 15 mg tablet 15 mg PO BEDTIME #30 tabs 09/25/24 pantoprazole 20 mg tablet,delayed 20 mg PO BEDTIME #30 tabs 09/25/24 release venlafaxine 150 mg 150 mg PO BEDTIME #30 caps 09/25/24 capsule,extended release 24 hr Allergies Allergy/AdvReac Type Severity Reaction Status Date / Time codeine Allergy Hives Verified 11/18/24 15:50 Review of Systems 2 Review of Systems: Yes all other systems are reviewed and are negative Constitutional: Constitutional: Denies fatigue and Denies fever(s) Cardiovascular: Cardiovascular: Denies chest pain and Denies dyspnea Respiratory: Respiratory: Denies dyspnea Musculoskeletal: Musculoskeletal: Reports arthralgias, Reports joint swelling, Denies numbness and Denies tingling Integumentary/Breasts: Skin/Breast: Denies erythema Neurologic: Denies numbness and Denies tingling Endocrine: Endocrine: Denies fatigue PMFSH Past Medical History Attestation statement: The following information was validated with the patient. Medical History (Updated 11/18/24 @ 21:36 by LLOYD Hnuter) Polysubstance use disorder Mood disorder Bipolar 1 disorder HIV (human immunodeficiency virus infection) Social History Social History Household Members: Friend(s) Household Members Other:: Pt reports he lives with three male friends in a 2 bedroom home. Housing: Apartment Do you presently have visiting nurse or other home services: No Alcohol intake: current Alcohol intake frequency: holidays/special occasions only Patient Tobacco Use Status: Current everyday Tobacco user Tobacco use type: Cigarette Smoked in Last 30 Days: Yes Use of substances other than those prescribed or required for medical reasons: Yes Substance Use Type: Crack/Cocaine and Marijuana Substance Use Frequency: Occasionally Last Used Substance: Days (ago) Any prior treatment program specific to substance use: No Advance Directives: No Advance Directives Information Provided: No Do you have a plan to hurt others: No Plan service: No Sexual orientation: Unable to collect Physical Exam ED Vital Signs: Vital Signs - 24 hr 11/18/24 15:48 11/18/24 17:56 11/18/24 19:38 Temperature 98.1 F 98.2 F 97.6 F Pulse Rate 112 H 96 108 H Respiratory Rate 20 20 16 Blood Pressure 116/82 117/71 129/86 Pulse Oximetry 97 99 100 Oxygen Delivery Method Room Air Room Air Room Air 11/19/24 06:17 Temperature 98.4 F Pulse Rate 59 Respiratory Rate 17 Blood Pressure 125/84 Pulse Oximetry 98 Oxygen Delivery Method Room Air BMI result Body Mass Index 33.6 Const Other: Alert well-appearing Orientation/consciousness: patient oriented x3 Resp Effort & Inspection: normal respiratory effort Cardio Other: Normal peripheral perfusion Skin Other: Warm dry no rash Neuro General: patient oriented x3, gait normal, no focal motor deficits and CN's II- XI intact bilaterally Extrem Other: Full flexion and extension of the left knee no overlying erythema or warmth noted, it was objectively swollen Psych Other: Cooperative Course Reevaluation(s) Reevaluation #1: Patient was pending results of his ultrasound, I already saw him and reviewed results of the x-ray. He re-presented to triage, he is now stating he is having thoughts of self-harm. He will have to be referred to the care team. We will be ordering screening labs, ethanol and U tox Time: 19:12 Medications Administered Generic Name Dose Route Start Last Admin Trade Name Freq PRN Reason Stop Dose Admin Mirtazapine 15 mg 11/19/24 08:15 11/19/24 10:25 Mirtazapine 15 Mg Tablet PO Not Given BEDTIME HERMINIA Discontinued Medications Generic Name Dose Route Start Last Admin Trade Name Timbo LIVE Reason Stop Dose Admin Cariprazine 6 mg 11/19/24 09:00 11/19/24 10:25 Cariprazine Hcl 3 Mg Capsule PO Not Given DAILY HERMINIA Ibuprofen 600 mg 11/18/24 17:55 11/18/24 17:58 Ibuprofen 600 Mg Tablet PO 11/18/24 17:56 600 mg ONCE ONE Administration Medical Decision Making Medical Decision Making [facility] Narrative: 34-year-old male with a history of polysubstance abuse and mood disorder presents with left knee pain and swelling x5 days. Patient was seen at urgent care he was sent here for further assessment. Patient denies trauma, overuse injury, or sprain. Denies redness, warmth, inability to ambulate or flex and extend the knee, no fevers. Problem: Polysubstance abuse, mood disorder History: Per patient I have considered the following differential diagnoses: Sprain, fracture, dislocation, DVT, septic effusion, gout , SI, HI, decompensated psychiatric illness, drug/alcohol intoxication Plan: X-ray obtained from triage, there was no fracture or dislocation there was a small effusion. We will obtain an ultrasound to make sure he does not have a DVT. His exam is not consistent with gout or septic joint, he is ambulatory and has full flexion and extension of the knee there was no overlying redness, or warmth. Patient was pending results of his ultrasound, I already saw him and reviewed results of the x-ray. He re-presented to triage, he is now stating he is having thoughts of self-harm. He will have to be referred to the care team. We will be ordering screening labs, ethanol and U tox I have independently reviewed the following tests: Labs: No leukocytosis, not anemic, viral panel negative, tox screen positive for amphetamine, cocaine X-ray left knee: Findings: No fractures or dislocations. There is a small joint effusion. No significant arthritic change. No radiopaque foreign body. Impression: Joint distances are normal. No acute skeletal abnormality Ultrasound left lower extremity:Impression: 1. Negative for deep venous thrombosis. 2. Anterior knee water density fluid collection with debris may represent displaced joint effusion or adventitial bursitis Lab Data 11/18/24 20:25 11/18/24 20:25 Labs: Lab Results 11/18/24 11/18/24 11/18/24 Range/Units 20:25 20:26 20:34 WBC 10.0 (4.8-10.8) X10*3/uL RBC 5.09 (4.60-5.80) X10*6/uL Hgb 15.3 (14.0-18.0) g/dl Hct 47.9 (42.0-52.0) % MCV 94.1 (80.0-98.0) fL MCH 30.1 (27.0-33.0) pg MCHC 31.9 (31.0-36.0) g/dl RDW 13.5 (11.0-16.0) % Plt Count 287 (160-400) X10*3/uL MPV 9.3 L (9.4-12.4) fL Immature Gran % (Auto) 0.2 (0.0-0.4) % Neut % (Auto) 68.9 (45-73) % Lymph % (Auto) 25.9 (20-40) % [place] % (Auto) 4.2 (2-11) % Eos % (Auto) 0.4 (0-4) % Baso % (Auto) 0.4 (0-2) % Lymph # (Auto) 2.6 (1.2-4.9) X10*3/uL [place] # (Auto) 0.4 (0.1-1.2) X10*3/uL Eos # (Auto) 0.0 (0.0-0.4) X10*3/uL Baso # (Auto) 0.0 (0.0-0.2) X10*3/uL Abs Immat Gran (auto) 0.02 (0.00-0.03) X10*3/uL Absolute Neuts (auto) 6.9 (2.0-8.3) x10*3/uL Absolute Nucleated RBC 0.000 (0.0-0.012) X10*3/uL Nucleated RBC % (auto) 0.0 (0.0-0.2) /100WBC Sodium 143 (135-145) mmol/L Potassium 4.1 (3.3-5.1) mmol/L Chloride 111 H (96-108) mmol/L Carbon Dioxide 22 (22-29) mmol/L Anion Gap 14 (12-20) BUN 11 (9-16) mg/dL Creatinine 0.79 (0.5-1.4) mg/dL Estim Creat Clear Calc 151.0 Estimated GFR > 60 Random Glucose 93 (60-115) mg/dL Calcium 9.1 (8.4-10.2) mg/dL Magnesium 2.1 (1.6-2.6) mg/dL Total Bilirubin 0.2 (0.0-1.0) mg/dL AST 14 (5-37) U/L ALT 13 (0-40) U/L Alkaline Phosphatase 62 (39-117) U/L Total Protein 7.7 (6.5-8.0) g/dL Albumin 4.2 (3.5-5.0) g/dL Salicylates < 5.0 L (15-30) mg/dL Urine Opiates Screen Not Detected (Not Detect) Ur Buprenorphine Scrn Not Detected (Not Detect) ng/mL Ur Oxycodone Screen Not Detected (Not Detect) ng/mL Urine Methadone Screen Not Detected (Not Detect) ng/mL Urine Fentanyl Screen Not Detected (Not Detect) Acetaminophen < 3 (<30) mcg/mL Ur Barbiturates Screen Not Detected (Not Detect) Ur Phencyclidine Scrn Not Detected (Not Detect) Ur Amphetamines Screen POSITIVE H (Not Detect) U Benzodiazepines Scrn Not Detected (Not Detect) Urine Cocaine Screen POSITIVE H (Not Detect) U Marijuana (THC) Screen POSITIVE H (Not Detect) Ethyl Alcohol < 10 mg/dL Influenza Type A (PCR) NEGATIVE (Negative) Influenza Type B (PCR) NEGATIVE (Negative) RSV RNA Qual (PCR) NEGATIVE (Negative) SARS-CoV-2 RNA (RT-PCR) NEGATIVE (Negative) Discharge Plan Discharge Clinical Impression: Suicidal ideation Patient Disposition: Still a Patient Prescriptions: No Action venlafaxine 150 mg Capsule,Extended Release 24hr 150 mg PO BEDTIME Qty: 30 1RF mirtazapine 15 mg Tablet 15 mg PO BEDTIME Qty: 30 1RF Vraylar 6 mg capsule 6 mg PO DAILY Qty: 30 1RF pantoprazole 20 mg tablet,delayed release (DR/EC) 20 mg PO BEDTIME Qty: 30 1RF Tivicay 50 mg tablet 50 mg PO BEDTIME Qty: 30 1RF [place]y 200-25 mg tablet 1 tab PO BEDTIME Qty: 30 1RF Interventions: [place]-Suicide Risk Severity Scale Last Done: 11/18/24 19:38 Print Language: Croatian ED Observation ED Observation Discharge Plan Comment: Patient made an inpatient bed search has not been today he will be admitted to the hospital.
[2024-11-18 17:56] VITALS: BP 117/71; PULSE 96; RESP 20; TEMP 36.8; O2SAT 99
[2024-11-18] MEDS: Ibuprofen 600 MG TABLET PO (17:58)
[2024-11-18 19:38] VITALS: BP 129/86; PULSE 108; RESP 16; TEMP 36.4; O2SAT 100
--- NOTE | 2024-11-18 19:47 | PC.NURSE ---
Pt arrives from the waiting room where he originally arrived reporting left knee pain. Pt states waking up today with this issue. U/S results are pending. While pt was waiting in the waiting room he notified the triage nurse that he is having thoughts to harm self. Pt arrives in the pod calm and cooperative, VSS aside from HR 110's. Reports thoughts of SI with plan to use a saw from home. Pt states mom's anniversary is coming up and triggers thoughts of SI I was a momma's boy and I miss her . States smoking marijuana helps him feel better. Denies chest pain, sob. 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 Belongings put away in locker. Pending lab results and care team eval. Monitoring ongoing.
[2024-11-18 20:31] LABS: MANUAL DIFF FLAG NO
[2024-11-18 20:34] LABS: Basophils Percent Auto 0.4 % (0-2); Eosinophils Percent Auto 0.4 % (0-4); Hematocrit 47.9 % (42.0-52.0); Hemoglobin 15.3 g/dl (14.0-18.0); Imm Gran Abs Auto 0.02 X10*3/uL (0.00-0.03); Imm Gran Pct Auto 0.2 % (0.0-0.4); Lymphocytes Absolute Auto 2.6 X10*3/uL (1.2-4.9); Lymphocytes Percent Auto 25.9 % (20-40); Mean Corpuscular HGB Conc 31.9 g/dl (31.0-36.0); Mean Corpuscular Hemoglobin 30.1 pg (27.0-33.0); Mean Corpuscular Volume 94.1 fL (80.0-98.0); Mean Platelet Volume 9.3 fL (9.4-12.4); Monocytes Absolute Auto 0.4 X10*3/uL (0.1-1.2); Monocytes Percent Auto 4.2 % (2-11); Neutrophils Absolute Auto 6.9 x10*3/uL (2.0-8.3); Neutrophils Percent Auto 68.9 % (45-73); Platelet Count 287 X10*3/uL (160-400); Red Blood Count 5.09 X10*6/uL (4.60-5.80); Red Cell Distribution Width 13.5 % (11.0-16.0)
[2024-11-18 20:43] LABS: Amphetamine Screen Urine POSITIVE (Not Detect); Barbiturates, Urine Not Detected (Not Detect); Benzodiazepines Screen Urine Not Detected (Not Detect); Buprenorphine Scr Not Detected (Not Detect); Cannabinoid Screen Urine POSITIVE (Not Detect); Cocaine Screen Urine POSITIVE (Not Detect); Fentanyl, urine Not Detected (Not Detect); Methadone Screen, Urine Not Detected (Not Detect); Opiate Screen Urine Not Detected (Not Detect); Oxycodone Screen Urine Not Detected (Not Detect); Phencyclidine Screen Urine Not Detected (Not Detect)
[2024-11-18 20:47] LABS: Acetaminophen LAB < 3 mcg/mL (<30); Alanine Aminotransferase 13 U/L (0-40); Albumin Level 4.2 g/dL (3.5-5.0); Alkaline Phosphatase 62 U/L (39-117); Anion Gap 14 (12-20); Aspartate Amino Transferase 14 U/L (5-37); Bilirubin Total 0.2 mg/dL (0.0-1.0); Blood Urea Nitrogen 11 mg/dL (9-16); Calcium 9.1 mg/dL (8.4-10.2); Carbon Dioxide 22 mmol/L (22-29); Chloride 111 mmol/L (96-108); Estimated Glomerular Filt Rate > 60; Ethanol < 10 mg/dL; Glucose Random 93 mg/dL (60-115); Magnesium 2.1 mg/dL (1.6-2.6); Potassium 4.1 mmol/L (3.3-5.1); Salicylate < 5.0 mg/dL (15-30); Sodium 143 mmol/L (135-145); Total Protein 7.7 g/dL (6.5-8.0)
[2024-11-18 21:16] LABS: Influenza A PCR NEGATIVE (Negative); Influenza B PCR NEGATIVE (Negative); Resp Syncy Virus RNA Qual PCR NEGATIVE (Negative); SARS COV2 PCR INHOUSE NEGATIVE (Negative)
[2024-11-19 06:17] VITALS: BP 125/84; PULSE 59; RESP 17; TEMP 36.9; O2SAT 98
--- NOTE | 2024-11-19 06:36 | PC.NURSE ---
Pt slept throughout the night with no issues or concerns. Breaths remained even regular and unlabored. No apparent distress noted. Monitoring is ongoing.
--- NOTE | 2024-11-19 09:38 | ECG_ITS ---
Test Reason : cocaine use Blood Pressure : */* mmHG Vent. Rate : 96 BPM Atrial Rate : 96 BPM P-R Int : 118 ms QRS Dur : 90 ms QT Int : 340 ms P-R-T Axes : 36 21 55 degrees QTcB Int : 429 ms Normal sinus rhythm Normal ECG When compared with ECG of 18-Sep-2024 14:07, Vent. rate has increased by 36 bpm Nonspecific T wave abnormality now evident in Lateral leads Referred By: Yash Mulligan Electronically Signed By: JOCELIN VASQUEZ
--- NOTE | 2024-11-19 10:25 | PC.NURSE ---
pt refused AM meds, reports that he only takes meds at night. called pharmacy to re-time meds
[2024-11-19 13:24] LABS: Appearance Urine Turbid; Color Urine Dark Yellow; Glucose Urine UA 100 mg/dL (Negative); Leukocyte Esterase Urine Negative (Negative); Nitrite Urine Negative (Negative); PH 5.5 (5.0-9.0); Specific Gravity - Urine 1.025 (1.005-1.025); Urine Blood Negative (Negative); Urine Ketones Trace mg/dL (Negative); Urine Protein Trace mg/dL (Neg-Trace)
--- NOTE | 2024-11-19 14:12 | PHA.MEDREC ---
Addendum entered by Angel Quintero RPh 11/19/24 14:33: Reviewed by [facility] Original Note: Pharmacy Consult ? Medication Reconciliation Pharmacy has reviewed the medication reconciliation done by nursing. Spoke to patient to confirm med list. Patient states he is on Venlafazine 150 mg . Patient was very adamant about taking his medications only at night .
[2024-11-19 16:47] VITALS: BP 134/100; PULSE 94; RESP 18; TEMP 36.1; O2SAT 97; BMI 33.9
[2024-11-19] MEDS: Ibuprofen 800 MG TABLET PO (18:34)
--- NOTE | 2024-11-19 18:47 | PC.ADMIT ---
Christoph is 34 year old male from our pod here originally for severe knee pain but who endorsed SI while in the ED. Imaging showed fluid and debris around the joint. He is cooperative with the admission process and signed a CV.? The first anniversary of his mother?s is coming up and he feels that he wants to join her. She was his best friend prior to her . He states that he does not have intent to act while on the unit. He has a history of cutting but denies the urge to act. He denies HI/AVH and will come to staff if he has SI urges. Tox screen was positive for amphetamines, cocaine, and THC. He is a smoker and daily marijuana user but uses cocaine only occasionally. He is unsure of the source of the amphetamines. Skin check is unremarkable. He reports a history of asthma and severe left knee pain. He is able to engage in humor and his speech is WNL. He becomes tearful when discussing his mother. He is placed on 15 minute safety checks.?
[2024-11-19 20:00] VITALS: BP 132/94; PULSE 110; TEMP 36.9; O2SAT 98
[2024-11-19] MEDS: Cariprazine HCl 3 MG CAPSULE 6 MG PO (22:29)
[2024-11-19] MEDS: Emtricitabine/Tenofov Alafenam TABLET 1 TAB PO (22:30)
[2024-11-19] MEDS: Dolutegravir Sodium 50 MG TABLET PO (22:30)
[2024-11-19] MEDS: Omeprazole 20 MG CAPSULE.DR PO (22:30)
[2024-11-19] MEDS: Venlafaxine HCl ER 150 MG CAP.ER.24H PO (22:30)
[2024-11-19] MEDS: Mirtazapine 15 MG TABLET PO (22:30)
[2024-11-19] MEDS: Acetaminophen 325 MG TABLET 650 MG PO (22:36)
--- NOTE | 2024-11-20 09:53 | HO.PSYADMNOT ---
HPI Date of Service: 11/20/24 Chief Complaint: Mood disorder, polysubstance use disorder Sources of Information: patient interviewed, chart reviewed and crisis/core team assessment reviewed HPI Subjective Notes: Shah Warning and Conditional Voluntary Narrative: Patient is a 34-year-old male with history of MDD, PTSD, personality disorder(?), cocaine use disorder who presents for worsening depression with passive SI in the face of going off medications, continued cocaine use disorder and the 1 year anniversary of his mother's coming up. Patient reports that after he was discharged this past September 2024 , he was overall good and that things were going well for him. Patient continued to use cocaine a few times a week; he said a couple weeks ago he stopped using his medications, saying he got busy and just started forgetting about him. Off his medications, and as the anniversary his mother's approached, patient started getting more depressed, with diminished interest in things, low energy, and not attending to ADLs has much; patient had an effusion in his left knee, which he says is intermittently chronic and so came to the emergency room. While he was here he expressed thoughts that life was not worth living and that he wanted to join his mother and thus was admitted. Patient denies AVH; denies alcohol or other drug use. Wants to get back on medications Patient seen at 10:30 11/20/2024 Past Psychiatric History: IP: November 2023-[facility], [place] after loss of mother Hx of several admissions >10 OP: PCP Medical Evaluation Reviewed: Yes COUNT INCLUDES THE [facility] Medical History (Updated 11/20/24 @ 17:42 by Donell Rivera MD) Cocaine use disorder MDD (major depressive disorder), recurrent severe, without psychosis Polysubstance use disorder Mood disorder Bipolar 1 disorder HIV (human immunodeficiency virus infection) Family History: Deferred Social History: Raised in [place], one brother, one sister. Completed eleventh grade Lives in [place] with three room-mates for the past ~9 months Legal-Active warrant for violation of probation Substance History: Ongoing cocaine abuse, several times a week Trauma History: Deferred Diagnostics Vital Signs (24Hr): Vital Signs - 24 hr 11/19/24 16:47 11/19/24 20:00 Temperature 97 F 98.4 F Pulse Rate 94 110 H Respiratory Rate 18 Blood Pressure 134/100 H 132/94 H Pulse Oximetry 97 98 Oxygen Delivery Method Room Air Room Air BMI result Body Mass Index 33.9 Labs 11/18/24 20:25 11/18/24 20:25 Labs: Laboratory Results - last 48 hr 11/18/24 11/18/24 11/18/24 20:25 20:26 20:34 WBC 10.0 RBC 5.09 Hgb 15.3 Hct 47.9 MCV 94.1 MCH 30.1 MCHC 31.9 RDW 13.5 Plt Count 287 MPV 9.3 L Immature Gran % (Auto) 0.2 Neut % (Auto) 68.9 Lymph % (Auto) 25.9 [place] % (Auto) 4.2 Eos % (Auto) 0.4 Baso % (Auto) 0.4 Lymph # (Auto) 2.6 [place] # (Auto) 0.4 Eos # (Auto) 0.0 Baso # (Auto) 0.0 Abs Immat Gran (auto) 0.02 Absolute Neuts (auto) 6.9 Absolute Nucleated RBC 0.000 Nucleated RBC % (auto) 0.0 Sodium 143 Potassium 4.1 Chloride 111 H Carbon Dioxide 22 Anion Gap 14 BUN 11 Creatinine 0.79 Estim Creat Clear Calc 151.0 Estimated GFR > 60 Random Glucose 93 Calcium 9.1 Magnesium 2.1 Total Bilirubin 0.2 AST 14 ALT 13 Alkaline Phosphatase 62 Total Protein 7.7 Albumin 4.2 Urine Color Dark Yellow Urine Appearance Turbid Urine pH 5.5 Ur Specific [place] 1.025 Urine Protein Trace Urine Glucose (UA) 100 H Urine Ketones Trace Urine Blood Negative Urine Nitrite Negative Ur Leukocyte Esterase Negative Salicylates < 5.0 L Urine Opiates Screen Not Detected Ur Buprenorphine Scrn Not Detected Ur Oxycodone Screen Not Detected Urine Methadone Screen Not Detected Urine Fentanyl Screen Not Detected Acetaminophen < 3 Ur Barbiturates Screen Not Detected Ur Phencyclidine Scrn Not Detected Ur Amphetamines Screen POSITIVE H U Benzodiazepines Scrn Not Detected Urine Cocaine Screen POSITIVE H U Marijuana (THC) Screen POSITIVE H Ethyl Alcohol < 10 Influenza Type A (PCR) NEGATIVE Influenza Type B (PCR) NEGATIVE RSV RNA Qual (PCR) NEGATIVE SARS-CoV-2 RNA (RT-PCR) NEGATIVE Meds/Allergies Meds Home Medications ?Medication ?Instructions ?Recorded ?Confirmed ?Type cariprazine 6 mg capsule (Vraylar) 6 mg PO BEDTIME 11/19/24 11/19/24 History ibuprofen 800 mg tablet 800 mg PO TID PRN Pain 11/19/24 11/19/24 History Allergies Allergies Allergy/AdvReac Type Severity Reaction Status Date / Time codeine Allergy Hives Verified 11/18/24 15:50 Mental Status Exam Mental Status Exam Narrative: Pt is alert and oriented; behavior is cooperative, friendly and calm; patient is not in distress; dressed in casual attire, with dyed pink hair, unkempt; mood is described as depressed and affect congruent, downcast; eye contact appropriate; Speech is normal rate, volume and prosody and not pressured; some psychomotor retardation present; thought process is organized and goal directed; Thought content is on tx; otherwise pertinent to relevant topics and without any delusional content, paranoid ideations or grandiosity; denies any SI/HI. Denies AVH and there is no evidence of perceptual disturbance. Patients insight and judgment impaired Assessment & Plan Assessment & Plan (1) MDD (major depressive disorder), recurrent severe, without psychosis: Status: Acute Code(s): F33.2 - Major depressive disorder, recurrent severe without psychotic features (2) Cocaine use disorder: Status: Acute Code(s): F14.10 - Cocaine abuse, uncomplicated (3) HIV (human immunodeficiency virus infection): Status: Acute Code(s): Z21 - Asymptomatic human immunodeficiency virus [HIV] infection status Plan Patient is a 34-year-old male with history of MDD, personality disorder(?), cocaine use disorder who presents for worsening depression with passive SI in the face of going off medications, continued cocaine use disorder and the 1 year anniversary of his mother's coming up. Patient reports that after he was discharged this past September 2024 , he was overall good and that things were going well for him. Patient continued to use cocaine a few times a week; he said a couple weeks ago he stopped using his medications, saying he got busy and just started forgetting about him. Off his medications, and as the anniversary his mother's approached, patient started getting more depressed, with diminished interest in things, low energy, and not attending to ADLs has much; patient had an effusion in his left knee, which he says is intermittently chronic and so came to the emergency room. While he was here he expressed thoughts that life was not worth living and that he wanted to join his mother and thus was admitted. Patient denies AVH; denies alcohol or other drug use. Wants to get back on medications Patient restarted on home medication regimen of venlafaxine, Remeron and Vraylar Discussed substance abuse issues with patient who at this time patient declines MAT or help with outpt treatment options including programs; instead patient is choosing to work out sobriety on own and says I can quit on my own. -left knee with effusion; patient reports it is intermittently chronic Plan: CV Q 15 minute checks Restarted Vraylar 6 mg Restarted Remeron 15 mg q.h.s. Restarted venlafaxine ER 150 mg q.h.s. Patient educated on: diagnosis, medication risk/benefits, substance abuse, therapeutic strategies and medical condition Informed Consent: understands Reason for continued inpatient stay Substantial Risk for: rapid decompensation Statement Statement: I have reviewed the history and physical and performed a pertinent examination on my patient. No changes have occurred unless specified. If the History and Physical was not performed prior to admission, the Hospitalist's service will be consulted for completing the admission physical. Time Spent With Patient Time: Total time managing care of this patient today ____ minutes.
[2024-11-20] MEDS: Ibuprofen 800 MG TABLET PO ×3 (11:42→23:56)
[2024-11-20 20:00] VITALS: BP 125/81; PULSE 88; RESP 16; TEMP 36.9; O2SAT 97
[2024-11-20] MEDS: Venlafaxine HCl ER 150 MG CAP.ER.24H PO (22:22)
[2024-11-20] MEDS: Dolutegravir Sodium 50 MG TABLET PO (22:23)
[2024-11-20] MEDS: Omeprazole 20 MG CAPSULE.DR PO (22:23)
[2024-11-20] MEDS: Cariprazine HCl 3 MG CAPSULE 6 MG PO (22:23)
[2024-11-20] MEDS: Emtricitabine/Tenofov Alafenam TABLET 1 TAB PO (22:23)
[2024-11-20] MEDS: Mirtazapine 15 MG TABLET PO (23:56)
[2024-11-21] MEDS: Ibuprofen 800 MG TABLET PO ×2 (06:13→12:36)
--- NOTE | 2024-11-21 09:06 | HO.PSYCHPN ---
Subjective Subjective Date of Service: 11/21/24 Reason For Visit: Mood disorder, polysubstance use disorder Interim History: Met with patient; discussed with team Patient reports continued to struggle with SI; says it probably will take awhile for medications to become effective. Denies any AVH. Complains of knee pain and ibuprofen and ice pack ordered -patient pushing himself to go to groups Mental Status Exam Mental Status Exam Narrative: Pt is alert and oriented; behavior is cooperative, intermittently isolative, calm; patient is not in distress; dressed in casual attire, with dyed pink hair, unkempt; mood is described as depressed and affect congruent, downcast; eye contact appropriate; Speech is normal rate, volume and prosody and not pressured; some psychomotor retardation present; thought process is organized and goal directed; Thought content is on tx; otherwise pertinent to relevant topics and without any delusional content, paranoid ideations or grandiosity; intermittent passive SI; no HI. Denies AVH and there is no evidence of perceptual disturbance. Patients insight and judgment impaired Diagnostics Vital Signs (24Hr): Vital Signs - 24 hr 11/20/24 20:00 Temperature 98.4 F Pulse Rate 88 Respiratory Rate 16 Blood Pressure 125/81 Pulse Oximetry 97 Oxygen Delivery Method Room Air BMI result Body Mass Index 33.9 Labs 11/18/24 20:25 11/18/24 20:25 Labs: Laboratory Results - last 48 hr 11/18/24 20:26 Urine Color Dark Yellow Urine Appearance Turbid Urine pH 5.5 Ur Specific [place] 1.025 Urine Protein Trace Urine Glucose (UA) 100 H Urine Ketones Trace Urine Blood Negative Urine Nitrite Negative Ur Leukocyte Esterase Negative Medications Medications Current Medications Acetaminophen (Acetaminophen 325 Mg Tablet) 650 mg PO Q6H PRN PRN Reason: Headache/Pain, Scale 1-10 Last Admin: 11/19/24 22:36 Dose: 650 mg Al Hydroxide/Mg Hydroxide (Magnesium Hydrox/Alum Hydrox 30 Ml Oral.Susp) 30 ml PO Q6H PRN PRN Reason: Heartburn/Nausea Albuterol Sulfate (Albuterol Sulfate 90 Mcg 8 Gm Inhaler) 2 puff INHALE RQ4H PRN PRN Reason: Shortness of Breath Baclofen (Baclofen 10 Mg Tablet) 10 mg PO TID PRN PRN Reason: withdrawal sx Cariprazine (Cariprazine Hcl 3 Mg Capsule) 6 mg PO BEDTIME [facility] Last Admin: 11/20/24 22:23 Dose: 6 mg Dolutegravir Sodium (Dolutegravir Sodium 50 Mg Tablet) 50 mg PO BEDTIME [facility] Last Admin: 11/20/24 22:23 Dose: 50 mg Emtricitabine/Tenofovir Alafenamide (Emtricitabine/Tenofov Alafenam Tablet) 1 tab PO BEDTIME [facility] Last Admin: 11/20/24 22:23 Dose: 1 tab Hydroxyzine HCl (Hydroxyzine Hcl 25 Mg Tablet) 25 mg PO Q6H PRN PRN Reason: mild anxiety Ibuprofen (Ibuprofen 800 Mg Tablet) 800 mg PO Q6H PRN PRN Reason: Pain, Severe (Pain Scale 7-10) Last Admin: 11/21/24 06:13 Dose: 800 mg Magnesium Hydroxide (Milk Of Magnesia 30 Ml Oral.Susp) 30 ml PO DAILY PRN PRN Reason: Constipation Mirtazapine (Mirtazapine 15 Mg Tablet) 15 mg PO BEDTIME [facility] Last Admin: 11/20/24 23:56 Dose: 15 mg Nicotine Polacrilex (Nicotine Polacrilex 2 Mg Gum) 4 mg BUCCAL Q2H PRN PRN Reason: Nicotine Cravings Omeprazole (Omeprazole 20 Mg Capsule.Dr) 20 mg PO BEDTIME [facility] Last Admin: 11/20/24 22:23 Dose: 20 mg Trazodone HCl (Trazodone Hcl 50 Mg Tablet) 50 mg PO BEDTIME MRX1 PRN PRN Reason: Insomnia Venlafaxine HCl (Venlafaxine Hcl Er 150 Mg Cap.Er.24h) 150 mg PO BEDTIME [facility] Last Admin: 11/20/24 22:22 Dose: 150 mg Allergies Allergies Allergy/AdvReac Type Severity Reaction Status Date / Time codeine Allergy Hives Verified 11/18/24 15:50 Assessment & Plan Assessment & Plan (1) MDD (major depressive disorder), recurrent severe, without psychosis: Status: Acute Code(s): F33.2 - Major depressive disorder, recurrent severe without psychotic features (2) Cocaine use disorder: Status: Acute Code(s): F14.10 - Cocaine abuse, uncomplicated (3) HIV (human immunodeficiency virus infection): Status: Acute Code(s): Z21 - Asymptomatic human immunodeficiency virus [HIV] infection status Plan Patient is a 34-year-old male with history of MDD, personality disorder(?), cocaine use disorder who presents for worsening depression with passive SI in the face of going off medications, continued cocaine use disorder and the 1 year anniversary of his mother's coming up. Patient reports that after he was discharged this past September 2024 , he was overall good and that things were going well for him. Patient continued to use cocaine a few times a week; he said a couple weeks ago he stopped using his medications, saying he got busy and just started forgetting about him. Off his medications, and as the anniversary his mother's approached, patient started getting more depressed, with diminished interest in things, low energy, and not attending to ADLs has much; patient had an effusion in his left knee, which he says is intermittently chronic and so came to the emergency room. While he was here he expressed thoughts that life was not worth living and that he wanted to join his mother and thus was admitted. Patient denies AVH; denies alcohol or other drug use. Wants to get back on medications Hospital course: Depressed on admission with intermittent passive SI; no AVH. Wants to get back on regular home medication regimen which was restarted and includes venlafaxine, Remeron and Vraylar Discussed substance abuse issues with patient who at this time patient declines MAT or help with outpt treatment options including programs; instead patient is choosing to work out sobriety on own and says I can quit on my own. -left knee with effusion; patient reports it is intermittently chronic / Patient reports continued to struggle with SI; says it probably will take awhile for medications to become effective. Denies any AVH. Complains of knee pain and ibuprofen and ice pack ordered -patient pushing himself to go to groups Plan: CV Q 15 minute checks Ibuprofen 600 mg t.i.d. for 3 days for left knee effusion Restarted Vraylar 6 mg Restarted Remeron 15 mg q.h.s. Restarted venlafaxine ER 150 mg q.h.s. Patient educated on: diagnosis, medication risk/benefits, therapeutic strategies and medical condition Informed Consent: understands Reason for continued inpatient stay Substantial Risk for: rapid decompensation Time Spent With Patient Time: Total time managing care of this patient today ____ minutes.
[2024-11-21 12:42] VITALS: BP 124/70; PULSE 75; RESP 16; TEMP 36.8; O2SAT 99
[2024-11-21] MEDS: Acetaminophen 325 MG TABLET 650 MG PO (19:14)
[2024-11-21] MEDS: Ibuprofen 600 MG TABLET PO (19:14)
[2024-11-21] MEDS: Dolutegravir Sodium 50 MG TABLET PO (22:02)
[2024-11-21] MEDS: Emtricitabine/Tenofov Alafenam TABLET 1 TAB PO (22:02)
[2024-11-21] MEDS: Mirtazapine 15 MG TABLET PO (22:03)
[2024-11-21] MEDS: Omeprazole 20 MG CAPSULE.DR PO (22:03)
[2024-11-21] MEDS: Cariprazine HCl 3 MG CAPSULE 6 MG PO (22:03)
[2024-11-21] MEDS: Venlafaxine HCl ER 150 MG CAP.ER.24H PO (22:04)
--- NOTE | 2024-11-22 09:43 | P.PNPSI_ITS ---
Subjective Subjective Date of Service: 11/22/24 Reason For Visit: Mood disorder, polysubstance use disorder Interim History: met with patient; discussed with team Says knee is getting better with Iburpofen pt reports he's feeling emotionally better, SI fully resolved. Says he's getting better and ready for discharge home; feels he has come to terms with his mothers . again refuses help w/ substance abuse; also refuses psych referrals Mental Status Exam Mental Status Exam Narrative: Pt is alert and oriented; behavior is cooperative, calm, social; patient is not in distress; dressed in casual attire, with dyed pink hair, unkempt; mood is described as better and affect congruent, brighter; eye contact appropriate; Speech is normal rate, volume and prosody and not pressured; no psychomotor retardation present; thought process is organized and goal directed; Thought content is on mother, tx, discharge; otherwise pertinent to relevant topics and without any delusional content, paranoid ideations or grandiosity; no SI; no HI. Denies AVH and there is no evidence of perceptual disturbance. Patients insight and judgment fair Diagnostics Vital Signs (24Hr): Vital Signs - 24 hr 11/21/24 12:42 Temperature 98.2 F Pulse Rate 75 Respiratory Rate 16 Blood Pressure 124/70 Pulse Oximetry 99 Oxygen Delivery Method Room Air BMI result Body Mass Index 33.9 Labs 11/18/24 20:25 11/18/24 20:25 Medications Medications Current Medications Acetaminophen (Acetaminophen 325 Mg Tablet) 650 mg PO Q6H PRN PRN Reason: Headache/Pain, Scale 1-10 Last Admin: 11/21/24 19:14 Dose: 650 mg Al Hydroxide/Mg Hydroxide (Magnesium Hydrox/Alum Hydrox 30 Ml Oral.Susp) 30 ml PO Q6H PRN PRN Reason: Heartburn/Nausea Albuterol Sulfate (Albuterol Sulfate 90 Mcg 8 Gm Inhaler) 2 puff INHALE RQ4H PRN PRN Reason: Shortness of Breath Baclofen (Baclofen 10 Mg Tablet) 10 mg PO TID PRN PRN Reason: withdrawal sx Cariprazine (Cariprazine Hcl 3 Mg Capsule) 6 mg PO BEDTIME [facility] Last Admin: 11/21/24 22:03 Dose: 6 mg Dolutegravir Sodium (Dolutegravir Sodium 50 Mg Tablet) 50 mg PO BEDTIME [facility] Last Admin: 11/21/24 22:02 Dose: 50 mg Emtricitabine/Tenofovir Alafenamide (Emtricitabine/Tenofov Alafenam Tablet) 1 tab PO BEDTIME [facility] Last Admin: 11/21/24 22:02 Dose: 1 tab Hydroxyzine HCl (Hydroxyzine Hcl 25 Mg Tablet) 25 mg PO Q6H PRN PRN Reason: mild anxiety Ibuprofen (Ibuprofen 800 Mg Tablet) 800 mg PO TIDWM [facility] Stop: 11/23/24 23:50 Magnesium Hydroxide (Milk Of Magnesia 30 Ml Oral.Susp) 30 ml PO DAILY PRN PRN Reason: Constipation Mirtazapine (Mirtazapine 15 Mg Tablet) 15 mg PO BEDTIME [facility] Last Admin: 11/21/24 22:03 Dose: 15 mg Nicotine Polacrilex (Nicotine Polacrilex 2 Mg Gum) 4 mg BUCCAL Q2H PRN PRN Reason: Nicotine Cravings Omeprazole (Omeprazole 20 Mg Capsule.Dr) 20 mg PO BEDTIME [facility] Last Admin: 11/21/24 22:03 Dose: 20 mg Trazodone HCl (Trazodone Hcl 50 Mg Tablet) 50 mg PO BEDTIME MRX1 PRN PRN Reason: Insomnia Venlafaxine HCl (Venlafaxine Hcl Er 150 Mg Cap.Er.24h) 150 mg PO BEDTIME [facility] Last Admin: 11/21/24 22:04 Dose: 150 mg Allergies Allergies Allergy/AdvReac Type Severity Reaction Status Date / Time codeine Allergy Hives Verified 11/18/24 15:50 Assessment & Plan Assessment & Plan (1) MDD (major depressive disorder), recurrent severe, without psychosis: Status: Acute Code(s): F33.2 - Major depressive disorder, recurrent severe without psychotic features (2) Cocaine use disorder: Status: Acute Code(s): F14.10 - Cocaine abuse, uncomplicated (3) HIV (human immunodeficiency virus infection): Status: Acute Code(s): Z21 - Asymptomatic human immunodeficiency virus [HIV] infection status Plan Patient is a 34-year-old male with history of MDD, personality disorder(?), cocaine use disorder who presents for worsening depression with passive SI in the face of going off medications, continued cocaine use disorder and the 1 year anniversary of his mother's coming up. Patient reports that after he was discharged this past September 2024 , he was overall good and that things were going well for him. Patient continued to use cocaine a few times a week; he said a couple weeks ago he stopped using his medications, saying he got busy and just started forgetting about him. Off his medications, and as the anniversary his mother's approached, patient started getting more depressed, with diminished interest in things, low energy, and not attending to ADLs has much; patient had an effusion in his left knee, which he says is intermittently chronic and so came to the emergency room. While he was here he expressed thoughts that life was not worth living and that he wanted to join his mother and thus was admitted. Patient denies AVH; denies alcohol or other drug use. Wants to get back on medications Hospital course: Depressed on admission with intermittent passive SI; no AVH. Wants to get back on regular home medication regimen which was restarted and includes venlafaxine, Remeron and Vraylar Discussed substance abuse issues with patient who at this time patient declines MAT or help with outpt treatment options including programs; instead patient is choosing to work out sobriety on own and says I can quit on my own. -left knee with effusion; patient reports it is intermittently chronic 11/21 Patient reports continued to struggle with SI; says it probably will take awhile for medications to become effective. Denies any AVH. Complains of knee pain and ibuprofen and ice pack ordered -patient pushing himself to go to groups 11/22 Says knee is getting better with Iburpofen pt reports he's feeling emotionally better, SI fully resolved. Says he's getting better and ready for discharge home; feels he has come to terms with his mothers . -again refuses psych referrals; will ask again. Disp planning Plan: CV Q 15 minute checks Ibuprofen 600 mg t.i.d. for 3 days for left knee effusion Restarted Vraylar 6 mg Restarted Remeron 15 mg q.h.s. Restarted venlafaxine ER 150 mg q.h.s. Patient educated on: diagnosis, medication risk/benefits, therapeutic strategies and medical condition Informed Consent: understands Reason for continued inpatient stay Substantial Risk for: stable for discharge Time Spent With Patient Time: Total time managing care of this patient today ____ minutes.
[2024-11-22] MEDS: Ibuprofen 800 MG TABLET PO ×2 (12:31→19:29)
[2024-11-22] MEDS: Acetaminophen 325 MG TABLET 650 MG PO ×2 (15:10→21:19)
[2024-11-22 20:00] VITALS: BP 122/91; PULSE 120; RESP 16; TEMP 36.3; O2SAT 97
[2024-11-22] MEDS: Venlafaxine HCl ER 150 MG CAP.ER.24H PO (21:35)
[2024-11-22] MEDS: Mirtazapine 15 MG TABLET PO (21:35)
[2024-11-22] MEDS: Cariprazine HCl 3 MG CAPSULE 6 MG PO (21:36)
[2024-11-22] MEDS: Emtricitabine/Tenofov Alafenam TABLET 1 TAB PO (21:36)
[2024-11-22] MEDS: Dolutegravir Sodium 50 MG TABLET PO (21:36)
[2024-11-22] MEDS: Omeprazole 20 MG CAPSULE.DR PO (21:38)
[2024-11-23] MEDS: Ibuprofen 800 MG TABLET PO ×3 (03:49→20:55)
[2024-11-23] MEDS: Acetaminophen 325 MG TABLET 650 MG PO (03:50)
[2024-11-23 08:00] VITALS: BP 138/76; PULSE 65; RESP 18; TEMP 36.3; O2SAT 97
--- NOTE | 2024-11-23 09:58 | P.PNPSI_ITS ---
Subjective Subjective Date of Service: 11/23/24 Reason For Visit: Mood disorder, polysubstance use disorder Interim History: Met with patient; discussed with team Patient reports that he is feeling much better and is looking forward to going home. Affect is noticeably brighter and patient is social in the milieu. Denies any SI at all and continues to report he feels comfortable mourning his mother. 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 Patient says he already has a psychiatric provider and does not need any refills on medications; only asking for ibuprofen for his knee. Mental Status Exam Mental Status Exam Narrative: Pt is alert and oriented; behavior is cooperative, calm, social; patient is not in distress; dressed in casual attire, with dyed pink hair, unkempt; mood is described as good and affect congruent, brighter; eye contact appropriate; Speech is normal rate, volume and prosody and not pressured; no psychomotor retardation present; thought process is organized and goal directed; Thought content is on mother, tx, discharge; otherwise pertinent to relevant topics and without any delusional content, paranoid ideations or grandiosity; no SI; no HI. Denies AVH and there is no evidence of perceptual disturbance. Patients insight and judgment fair Diagnostics Vital Signs (24Hr): Vital Signs - 24 hr 11/22/24 20:00 11/23/24 08:00 Temperature 97.3 F 97.3 F Pulse Rate 120 H 65 Respiratory Rate 16 18 Blood Pressure 122/91 H 138/76 Pulse Oximetry 97 97 Oxygen Delivery Method Room Air Room Air BMI result Body Mass Index 33.9 Labs 11/18/24 20:25 11/18/24 20:25 Medications Medications Current Medications Acetaminophen (Acetaminophen 325 Mg Tablet) 650 mg PO Q6H PRN PRN Reason: Headache/Pain, Scale 1-10 Last Admin: 11/23/24 03:50 Dose: 650 mg Al Hydroxide/Mg Hydroxide (Magnesium Hydrox/Alum Hydrox 30 Ml Oral.Susp) 30 ml PO Q6H PRN PRN Reason: Heartburn/Nausea Albuterol Sulfate (Albuterol Sulfate 90 Mcg 8 Gm Inhaler) 2 puff INHALE RQ4H PRN PRN Reason: Shortness of Breath Baclofen (Baclofen 10 Mg Tablet) 10 mg PO TID PRN PRN Reason: withdrawal sx Cariprazine (Cariprazine Hcl 3 Mg Capsule) 6 mg PO BEDTIME [facility] Last Admin: 11/22/24 21:36 Dose: 6 mg Dolutegravir Sodium (Dolutegravir Sodium 50 Mg Tablet) 50 mg PO BEDTIME [facility] Last Admin: 11/22/24 21:36 Dose: 50 mg Emtricitabine/Tenofovir Alafenamide (Emtricitabine/Tenofov Alafenam Tablet) 1 tab PO BEDTIME [facility] Last Admin: 11/22/24 21:36 Dose: 1 tab Hydroxyzine HCl (Hydroxyzine Hcl 25 Mg Tablet) 25 mg PO Q6H PRN PRN Reason: mild anxiety Ibuprofen (Ibuprofen 800 Mg Tablet) 800 mg PO Q8H PRN PRN Reason: Pain 1-10 Stop: 11/23/24 23:50 Last Admin: 11/23/24 03:49 Dose: 800 mg Magnesium Hydroxide (Milk Of Magnesia 30 Ml Oral.Susp) 30 ml PO DAILY PRN PRN Reason: Constipation Mirtazapine (Mirtazapine 15 Mg Tablet) 15 mg PO BEDTIME [facility] Last Admin: 11/22/24 21:35 Dose: 15 mg Nicotine Polacrilex (Nicotine Polacrilex 2 Mg Gum) 4 mg BUCCAL Q2H PRN PRN Reason: Nicotine Cravings Omeprazole (Omeprazole 20 Mg Capsule.Dr) 20 mg PO BEDTIME [facility] Last Admin: 11/22/24 21:38 Dose: 20 mg Trazodone HCl (Trazodone Hcl 50 Mg Tablet) 50 mg PO BEDTIME [facility]X1 PRN PRN Reason: Insomnia Venlafaxine HCl (Venlafaxine Hcl Er 150 Mg Cap.Er.24h) 150 mg PO BEDTIME [facility] Last Admin: 11/22/24 21:35 Dose: 150 mg Allergies Allergies Allergy/AdvReac Type Severity Reaction Status Date / Time codeine Allergy Hives Verified 11/18/24 15:50 Assessment & Plan Assessment & Plan (1) MDD (major depressive disorder), recurrent severe, without psychosis: Status: Acute Code(s): F33.2 - Major depressive disorder, recurrent severe without psychotic features (2) Cocaine use disorder: Status: Acute Code(s): F14.10 - Cocaine abuse, uncomplicated (3) HIV (human immunodeficiency virus infection): Status: Acute Code(s): Z21 - Asymptomatic human immunodeficiency virus [HIV] infection status Plan Patient is a 34-year-old male with history of MDD, personality disorder(?), cocaine use disorder who presents for worsening depression with passive SI in the face of going off medications, continued cocaine use disorder and the 1 year anniversary of his mother's coming up. Patient reports that after he was discharged this past September 2024 , he was overall good and that things were going well for him. Patient continued to use cocaine a few times a week; he said a couple weeks ago he stopped using his medications, saying he got busy and just started forgetting about him. Off his medications, and as the anniversary his mother's approached, patient started getting more depressed, with diminished interest in things, low energy, and not attending to ADLs has much; patient had an effusion in his left knee, which he says is intermittently chronic and so came to the emergency room. While he was here he expressed thoughts that life was not worth living and that he wanted to join his mother and thus was admitted. Patient denies AVH; denies alcohol or other drug use. Wants to get back on medications Hospital course: Depressed on admission with intermittent passive SI; no AVH. Wants to get back on regular home medication regimen which was restarted and includes venlafaxine, Remeron and Vraylar Discussed substance abuse issues with patient who at this time patient declines MAT or help with outpt treatment options including programs; instead patient is choosing to work out sobriety on own and says I can quit on my own. -left knee with effusion; patient reports it is intermittently chronic 11/21 Patient reports continued to struggle with SI; says it probably will take awhile for medications to become effective. Denies any AVH. Complains of knee pain and ibuprofen and ice pack ordered -patient pushing himself to go to groups 11/22 Says knee is getting better with Iburpofen pt reports he's feeling emotionally better, SI fully resolved. Says he's getting better and ready for discharge home; feels he has come to terms with his mothers . -again refuses psych referrals; will ask again. Disp planning 11/23 Patient reports that he is feeling much better and is looking forward to going home. Affect is noticeably brighter and patient is social in the milieu. Denies any SI at all and continues to report he feels comfortable mourning his mother. 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 Patient says he already has a psychiatric provider and does not need any refills on medications; only asking for ibuprofen for his knee. Patient is back to baseline. He is not in imminent risk for harm to self or others and appropriate to return to the community for treatment. Request for discharge honored. Plan: CV Q 15 minute checks Ibuprofen 600 mg t.i.d. for 3 days for left knee effusion Continue Vraylar 6 mg Continue Remeron 15 mg q.h.s. Continue venlafaxine ER 150 mg q.h.s. Patient educated on: diagnosis, medication risk/benefits and medical condition Informed Consent: understands Reason for continued inpatient stay Substantial Risk for: stable for discharge Time Spent With Patient Time: Total time managing care of this patient today ____ minutes.
[2024-11-23] MEDS: Baclofen 10 MG TABLET PO (17:44)
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
[2024-11-23 20:00] VITALS: BP 177/88; PULSE 110; RESP 18; TEMP 36.4; O2SAT 98
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
[2024-11-23] MEDS: Cariprazine HCl 3 MG CAPSULE 6 MG PO (21:07)
[2024-11-23] MEDS: Emtricitabine/Tenofov Alafenam TABLET 1 TAB PO (21:07)
[2024-11-23] MEDS: Dolutegravir Sodium 50 MG TABLET PO (21:07)
[2024-11-23] MEDS: Omeprazole 20 MG CAPSULE.DR PO (21:08)
[2024-11-23] MEDS: Venlafaxine HCl ER 150 MG CAP.ER.24H PO (21:08)
[2024-11-23] MEDS: Mirtazapine 15 MG TABLET PO (21:08)
== END 2024-11-23 21:50 | disposition home or self-care (01) | DRG 751 ==
LOC: HO.ED 11-19 13:18 → HO.PM5 11-19 14:35
PROVIDERS: Physician Assistant Medical; Student in an Organized Health Care Education/Training Program; Admitting Provider Clinical Nurse Specialist Psychiatric/Mental Health, Adult; Emergency Provider Emergency Medicine Emergency Medical Services; Visit Provider Psychiatry & Neurology Psychiatry
DX: F33.2 Major depressive disorder, recurrent severe without psychotic features (principal); R45.851 Suicidal ideations; F17.210 Nicotine dependence, cigarettes, uncomplicated; Z20.822 Contact with and (suspected) exposure to COVID-19; Z71.6 Tobacco abuse counseling; F19.10 Other psychoactive substance abuse, uncomplicated; F14.10 Cocaine abuse, uncomplicated; Z21 Asymptomatic human immunodeficiency virus [HIV] infection status; Z79.899 Other long term (current) drug therapy
CPT/HCPCS: 0241U; 73564; 80053; 80143; 80179; 80307; 81003; 83735; 85025; 93005; 93971; 99285; S9485

== ENCOUNTER → 2024-11-18 15:52 | Outpatient (BNV) | payer OTHER, MEDICAID, SELFPAY | PROVIDERS: Emergency Provider Emergency Medicine Emergency Medical Services; Visit Provider Radiology Diagnostic Radiology | DX: M79.662 Pain in left lower leg (principal); R22.42 Localized swelling, mass and lump, left lower limb; M25.562 Pain in left knee | CPT/HCPCS: 73564; 93971 ==

== ENCOUNTER → 2024-11-19 09:38 | Outpatient (BNV) | payer OTHER, SELFPAY | PROVIDERS: Emergency Provider Emergency Medicine Emergency Medical Services; Visit Provider Internal Medicine | DX: F14.90 Cocaine use, unspecified, uncomplicated (principal) | CPT/HCPCS: 93010 ==

== ENCOUNTER → 2024-11-19 14:33 | Outpatient (BNV) | payer OTHER, SELFPAY | PROVIDERS: Admitting Provider Clinical Nurse Specialist Psychiatric/Mental Health, Adult; Emergency Provider Emergency Medicine Emergency Medical Services; Visit Provider Psychiatry & Neurology Psychiatry | DX: F33.2 Major depressive disorder, recurrent severe without psychotic features (principal); F14.10 Cocaine abuse, uncomplicated; Z21 Asymptomatic human immunodeficiency virus [HIV] infection status | CPT/HCPCS: 90792; 99232 ==